=== PATIENT | female | born 1975 | race Hispanic/Latino ===

== ENCOUNTER 2018-07-04 09:15 | Emergency (ER) | payer MEDICARE ==
[2018-07-04 09:52] VITALS: BP 116/85
[2018-07-04] MEDS ORDERED: DELTASONE PO ONE (11:26)
[2018-07-04] MEDS ORDERED: TORADOL IM ONE (11:26)
--- NOTE | 2018-07-04 11:31 | Emergency Department Report ---
ED Neck Pain/Injury HPI - General Chief Complaint: Neck Pain/Injury Stated Complaint: NECK SPASMS/PAIN Time Seen by Provider: 07/04/18 11:25 Mode of arrival: Ambulatory Limitations: No Limitations - History of Present Illness Initial Comments: This is a 43-year-old female nontoxic, well nourished in appearance, no acute signs of distress presents to the ED with c/o of acute on chronic neck/upper back pain. Patient stated that she wake up with neck pain. Patient states has history of sciatica nerve pain. Patient states that pain radiates through to his left upper extremity. Patient denies any trauma. Denies any bladder or bowel instability. Patient denies any urinary symptoms. Denies any fever, chills, nausea, vomiting, headache, stiff neck, chest pain or shortness of breath. Patient denies any numbness or tingling. They stated allergies to Ceftin, Reglan and penicillin. Past medical history includes sciatica, neck and spine issues. Patient stated that she took Flexeril prior to coming to the ED. Patient stated that she takes Flexeril daily due to chronic back/neck spasms. MD Complaint: neck pain, upper back pain -: This morning Place: home Radiation: right upper extremity Severity: mild Severity scale (0 -10): 8 Quality: aching Consistency: constant Improves With: immobilization Worsens With: movement of neck Associated Symptoms: none. denies: headache, fever, numbness, tingling, weakness, vertigo, difficulty walking, swollen glands, difficulty swallowing, nausea, vomiting Treatments Prior to Arrival: none - Related Data Previous Rx's Medication Instructions Recorded Last Taken Type Acetaminophen/Codeine [Tylenol 1 tab PO Q6H PRN #12 tab 07/04/18 Unknown Rx /Codeine # 3 tab] Ibuprofen [Motrin] 600 mg PO Q8H PRN #30 tablet 07/04/18 Unknown Rx Allergies Allergy/AdvReac Type Severity Reaction Status Date / Time cefuroxime [From Ceftin] Allergy Unknown Verified 07/04/18 09:49 metoclopramide [From Reglan] Allergy Unknown Verified 07/04/18 09:49 Penicillins Allergy Shortness Verified 07/04/18 09:49 of Breath ED Review of Systems ROS: Stated complaint: NECK SPASMS/PAIN Other details as noted in HPI Constitutional: denies: chills, fever Eyes: denies: eye pain, eye discharge, vision change ENT: denies: ear pain, throat pain Respiratory: denies: cough, shortness of breath, wheezing Cardiovascular: denies: chest pain, palpitations Endocrine: no symptoms reported Gastrointestinal: denies: abdominal pain, nausea, diarrhea Genitourinary: denies: urgency, dysuria, discharge Musculoskeletal: back pain. denies: joint swelling, arthralgia Skin: denies: rash, lesions Neurological: denies: headache, weakness, paresthesias Psychiatric: denies: anxiety, depression Hematological/Lymphatic: denies: easy bleeding, easy bruising ED Past Medical Hx - Past Medical History Additional medical history: back, neck and spine issues, RA, Bechets disease - Surgical History Hx Cholecystectomy: Yes - Social History Smoking Status: Current Every Day Smoker Substance Use Type: None - Medications Home Medications: Home Medications Medication Instructions Recorded Confirmed Last Taken Type Acetaminophen/Codeine [Tylenol 1 tab PO Q6H PRN #12 tab 07/04/18 Unknown Rx /Codeine # 3 tab] Ibuprofen [Motrin] 600 mg PO Q8H PRN #30 tablet 07/04/18 Unknown Rx ED Physical Exam - General Limitations: No Limitations General appearance: alert, in no apparent distress - Head Head exam: Present: atraumatic, normocephalic - Eye Eye exam: Present: normal appearance Pupils: Present: normal accommodation - ENT ENT exam: Present: normal exam, mucous membranes moist - Neck Neck exam: Present: normal inspection, full ROM. Absent: tenderness, meningismus, lymphadenopathy - Respiratory Respiratory exam: Present: normal lung sounds bilaterally. Absent: respiratory distress, wheezes, rales, rhonchi, stridor, chest wall tenderness, accessory muscle use, decreased breath sounds, prolonged expiratory - Cardiovascular Cardiovascular Exam: Present: regular rate, normal rhythm, normal heart sounds. Absent: irregular rhythm, systolic murmur, diastolic murmur, rubs, gallop - GI/Abdominal GI/Abdominal exam: Present: soft, normal bowel sounds - Rectal Rectal exam: Present: deferred - Extremities Exam Extremities exam: Present: normal inspection, full ROM, normal capillary refill. Absent: tenderness - Back Exam Back exam: Present: normal inspection, full ROM, paraspinal tenderness (right sided cervical paraspinal). Absent: tenderness, CVA tenderness (R), CVA tenderness (L), muscle spasm, vertebral tenderness, rash noted - Expanded Back Exam Expanded Back exam: Negative Straight Leg Raising: Left, Right - Neurological Exam Neurological exam: Present: alert, oriented X3, normal gait - Psychiatric Psychiatric exam: Present: normal affect, normal mood - Skin Skin exam: Present: warm, dry, intact, normal color. Absent: rash ED Course Vital Signs 07/04/18 09:49 Temperature 99.4 F Pulse Rate 119 H Respiratory 22 Rate Blood Pressure 116/85 O2 Sat by Pulse 99 Oximetry - Reevaluation(s) Reevaluation #1: 07/04/18 11:32 Patient is speaking in full sentences with no signs of distress noted. ED Medical Decision Making - Medical Decision Making This is a 43-year-old female that presents with cervical muscle strain. Patient is stable was examined by me. There is no spinal tenderness. There is no cauda equina syndrome during examination. No bladder or bowel instability. Patient received Toradol 60 mg IM and Prednisone in the ED which patient stated that her symptoms has resolved and subsided. Patient is discharged with Motrin and Tylenol with codeine. Patient was instructed not to operate any machinery while taking Tylenol with codeine as they cause her drowsiness. Patient stated has Flexeril at home. Patient was referred to Follow-up with a primary care doctor in 3-5 days or if symptoms worsen and continue return to emergency room as soon as possible. At time of discharge, the patient does not seem toxic or ill in appearance. No acute signs of distress noted. Patient agrees to discharge treatment plan of care. No further questions noted by the patient. This chart is dictated with using [facility] [facility] [employer] Critical care attestation.: If time is entered above; I have spent that time in minutes in the direct care of this critically ill patient, excluding procedure time. ED Disposition Clinical Impression: Cervical muscle strain Qualifiers: Encounter type: initial encounter Qualified Code(s): S16.1XXA - Strain of muscle, fascia and tendon at neck level, initial encounter Disposition: TO HOME OR SELFCARE Is pt being admited?: No Does the pt Need Aspirin: No Condition: Stable Instructions: Muscle Strain (ED), Cyclobenzaprine (By mouth), Ibuprofen (By mouth) Additional Instructions: Follow-up with your primary care doctor in 3-5 days or if symptoms worsen such as bladder or bowel stability, chest pain, short of breath, numbness or tingling sensation in extremities, headache, dizziness, visual changes, nausea vomiting, or abdominal pain, return back to emergency room as was possible. Do not operate any machinery while taking Tylenol with codeine as this may cause drowsiness. Do not mix Flexeril with Tylenol with codeine as this causes severe drowsiness and Central nervous system depressant. Prescriptions: Acetaminophen/Codeine [Tylenol /Codeine # 3 tab] 1 tab PO Q6H PRN #12 tab PRN Reason: Pain , Severe (7-10) Ibuprofen [Motrin] 600 mg PO Q8H PRN #30 tablet PRN Reason: Pain Referrals: PRIMARY CARE, [Primary Care Provider] - 3-5 Days DEMETRIUS TERRAZAS MD [Staff Physician] - 3-5 Days [facility] [Outside] - 3-5 Days [facility] [Outside] - 3-5 Days Forms: Work/School Release Form(ED)
== END 2018-07-04 12:25 | disposition home or self-care (01) ==
LOC: ED 09:15
DX: S16.1XXA Strain of muscle, fascia and tendon at neck level, initial encounter (principal); F17.200 Nicotine dependence, unspecified, uncomplicated; Z90.49 Acquired absence of other specified parts of digestive tract; Z88.1 Allergy status to other antibiotic agents; Z88.0 Allergy status to penicillin; X58.XXXA Exposure to other specified factors, initial encounter; Y93.89 Activity, other specified; Y99.8 Other external cause status; Y92.89 Other specified places as the place of occurrence of the external cause
CPT/HCPCS: 96372; 99282; J1885; J7512

== ENCOUNTER 2018-07-17 09:01 | Emergency (ER) | payer MEDICARE ==
[2018-07-17 09:31] VITALS: BP 118/74
[2018-07-17 10:08] LABS: Hematocrit 39.8 % (30.3-42.9); Hemoglobin 13.5 gm/dl (10.1-14.3); Mean Corpuscular HGB Conc 34 % (30-34); Mean Corpuscular Hemoglobin 33 pg (28-32); Mean Corpuscular Volume 96 fl (79-97); Platelet Count 230 K/mm3 (140-440); Red Blood Count 4.16 M/mm3 (3.65-5.03)
[2018-07-17 10:19] LABS: INR 0.85 (0.87-1.13)
[2018-07-17 10:20] LABS: Partial Thromboplastin Time 25.5 Sec. (24.2-36.6)
[2018-07-17 10:46] LABS: Alanine Aminotransferase 17 units/L (7-56); Albumin 4.4 g/dL (3.9-5); BUN/Creatinine Ratio 21; Blood Urea Nitrogen 19 mg/dL (7-17); Calcium 9.5 mg/dL (8.4-10.2); Hemolysis Index 7
[2018-07-17] MEDS ORDERED: DECADRON PO ONE (12:27)
[2018-07-17] MEDS ORDERED: DUONEB *Not for PRN Use IH ONE (12:27)
--- NOTE | 2018-07-17 12:29 | Emergency Department Report ---
ED General Adult HPI - General Chief complaint: Upper Respiratory Infection Stated complaint: HEADACHE/COUGHING Time Seen by Provider: 07/17/18 11:44 Source: patient Mode of arrival: Ambulatory Limitations: No Limitations - History of Present Illness Initial comments: Patient presents to the emergency department with a chief complaint of not feeling well. Patient states for the last 2 days she has felt like she has a sinus infection and complains of a cough along with body aches. Patient denies a fever. Patient also denies chest pain, shortness breath, or headache. There are no other associated symptoms. -: Sudden Radiation: non-radiation Severity scale (0 -10): 3 Quality: aching Consistency: constant Improves with: none Worsens with: none Associated Symptoms: denies other symptoms Treatments Prior to Arrival: none - Related Data Previous Rx's Medication Instructions Recorded Last Taken Type Acetaminophen/Codeine [Tylenol 1 tab PO Q6H PRN #12 tab 07/04/18 Unknown Rx /Codeine # 3 tab] Ibuprofen [Motrin] 600 mg PO Q8H PRN #30 tablet 07/04/18 Unknown Rx ALBUTEROL Inhaler(NF) [VENTOLIN 2 puff IH Q4HR PRN #1 inha 07/17/18 Unknown Rx Inhaler(NF)] Acetaminophen/Codeine [Tylenol 1 tab PO Q6H PRN #12 tab 07/17/18 Unknown Rx /Codeine # 3 tab] Azithromycin [Zithromax Z-LETICIA] 0 mg PO DAILY #1 tab 07/17/18 Unknown Rx Prednisone [predniSONE 10 mg 10 mg PO .TAPER #1 tab.ds.pk 07/17/18 Unknown Rx (6-Day Pack, 21 Tabs)] Allergies Allergy/AdvReac Type Severity Reaction Status Date / Time cefuroxime [From Ceftin] Allergy Unknown Verified 07/04/18 09:49 metoclopramide [From Reglan] Allergy Unknown Verified 07/04/18 09:49 Penicillins Allergy Shortness Verified 07/04/18 09:49 of Breath ED Review of Systems ROS: Stated complaint: HEADACHE/COUGHING Other details as noted in HPI Comment: All other systems reviewed and negative Constitutional: denies: chills, fever Eyes: denies: eye pain, eye discharge, vision change ENT: denies: ear pain, throat pain Respiratory: denies: cough, shortness of breath, wheezing Cardiovascular: denies: chest pain, palpitations Endocrine: no symptoms reported Gastrointestinal: denies: abdominal pain, nausea, diarrhea Genitourinary: denies: urgency, dysuria, discharge Musculoskeletal: denies: back pain, joint swelling, arthralgia Skin: denies: rash, lesions Neurological: denies: headache, weakness, paresthesias Psychiatric: denies: anxiety, depression Hematological/Lymphatic: denies: easy bleeding, easy bruising ED Past Medical Hx - Past Medical History Previous Medical History?: Yes Additional medical history: back, neck and spine issues, RA, Bechets disease - Surgical History Past Surgical History?: Yes Hx Cholecystectomy: Yes - Social History Smoking Status: Current Every Day Smoker Substance Use Type: None - Medications Home Medications: Home Medications Medication Instructions Recorded Confirmed Last Taken Type Acetaminophen/Codeine [Tylenol 1 tab PO Q6H PRN #12 tab 07/04/18 Unknown Rx /Codeine # 3 tab] Ibuprofen [Motrin] 600 mg PO Q8H PRN #30 tablet 07/04/18 Unknown Rx ALBUTEROL Inhaler(NF) [VENTOLIN 2 puff IH Q4HR PRN #1 inha 07/17/18 Unknown Rx Inhaler(NF)] Acetaminophen/Codeine [Tylenol 1 tab PO Q6H PRN #12 tab 07/17/18 Unknown Rx /Codeine # 3 tab] Azithromycin [Zithromax Z-LETICIA] 0 mg PO DAILY #1 tab 07/17/18 Unknown Rx Prednisone [predniSONE 10 mg 10 mg PO .TAPER #1 tab.ds.pk 07/17/18 Unknown Rx (6-Day Pack, 21 Tabs)] ED Physical Exam - General Limitations: No Limitations General appearance: alert, in no apparent distress - Head Head exam: Present: atraumatic, normocephalic - Eye Eye exam: Present: normal appearance - ENT ENT exam: Present: mucous membranes moist - Neck Neck exam: Present: normal inspection - Respiratory Respiratory exam: Present: normal lung sounds bilaterally. Absent: respiratory distress, wheezes, rales, rhonchi - Cardiovascular Cardiovascular Exam: Present: regular rate, normal rhythm. Absent: systolic murmur, diastolic murmur, rubs, gallop - GI/Abdominal GI/Abdominal exam: Present: soft, normal bowel sounds. Absent: distended, tenderness - Extremities Exam Extremities exam: Present: normal inspection - Back Exam Back exam: Present: normal inspection - Neurological Exam Neurological exam: Present: alert, oriented X3, CN II-XII intact. Absent: motor sensory deficit - Psychiatric Psychiatric exam: Present: normal affect, normal mood - Skin Skin exam: Present: warm, dry, intact, normal color. Absent: rash ED Course Vital Signs 07/17/18 07/17/18 07/17/18 09:26 11:40 12:56 Temperature 98.6 F Pulse Rate 109 H Pulse Rate [ 94 H Posterior Bilateral Throughout] Respiratory 20 17 Rate Respiratory 20 Rate [Posterior Bilateral Throughout] Blood Pressure 118/74 O2 Sat by Pulse 97 Oximetry 07/17/18 13:09 Temperature Pulse Rate Pulse Rate [ 93 H Posterior Bilateral Throughout] Respiratory Rate Respiratory 18 Rate [Posterior Bilateral Throughout] Blood Pressure O2 Sat by Pulse Oximetry ED Medical Decision Making - Lab Data Result diagrams: 07/17/18 09:51 07/17/18 09:51 - Medical Decision Making Discussed results and plan of care Critical care attestation.: If time is entered above; I have spent that time in minutes in the direct care of this critically ill patient, excluding procedure time. ED Disposition Clinical Impression: Bronchitis Disposition: [id number]-01 TO HOME OR SELFCARE Is pt being admited?: No Does the pt Need Aspirin: No Condition: Stable Instructions: Acute Bronchitis (ED) Additional Instructions: return if worse Prescriptions: Acetaminophen/Codeine [Tylenol /Codeine # 3 tab] 1 tab PO Q6H PRN #12 tab PRN Reason: pain ALBUTEROL Inhaler(NF) [VENTOLIN Inhaler(NF)] 2 puff IH Q4HR PRN #1 inha PRN Reason: Wheezing Azithromycin [Zithromax Z-LETICIA] 0 mg PO DAILY #1 tab Prednisone [predniSONE 10 mg (6-Day Pack, 21 Tabs)] 10 mg PO .TAPER #1 tab.ds.pk Time of Disposition: 13:28
--- NOTE | 2018-07-17 13:07 | XRay Report ---
ROUTINE CHEST, TWO VIEWS: HISTORY: Short of breath. The lungs are hyperinflated but clear. No pleural effusion or pneumothorax. Normal heart and mediastinal structures. There is subtle loss of height in the midthoracic spine the approximate level of T6. The age of this is indeterminate. Please correlate with the patient. IMPRESSION: No acute process. Hyperinflated lungs. Mild loss of height of approximately T6 level as described.
== END 2018-07-17 13:34 | disposition home or self-care (01) ==
LOC: ED 09:01
DX: J40 Bronchitis, not specified as acute or chronic (principal); F17.200 Nicotine dependence, unspecified, uncomplicated; Z90.49 Acquired absence of other specified parts of digestive tract; Z88.1 Allergy status to other antibiotic agents; Z88.0 Allergy status to penicillin; Z88.8 Allergy status to other drugs, medicaments and biological substances
CPT/HCPCS: 36415; 71046; 80053; 85027; 85610; 85730; 94640; 99284; J8540

== ENCOUNTER 2018-08-02 10:08 | Emergency (ER) | payer MEDICARE ==
[2018-08-02 10:27] VITALS: BP 101/72
[2018-08-02 11:05] LABS: Bacteria,Urine 1+ /HPF (Negative); Bilirubin,Urine NEG (Negative); Blood,Urine LG (Negative); Color,Urine Amber (Yellow); Mucus,Urine 3+ /HPF; Urobilinogen,Urine < 2.0 mg/dL (<2.0)
[2018-08-02 11:06] LABS: HCG Qualitative,Urine Negative (Negative)
[2018-08-02 11:07] LABS: Basophils # (Auto) 0.1 K/mm3 (0.0-0.1); Basophils % (Auto) 0.9 % (0.0-1.8); Eosinophils # (Auto) 0.1 K/mm3 (0.0-0.4); Eosinophils % (Auto) 1.4 % (0.0-4.3); Hematocrit 39.5 % (30.3-42.9); Hemoglobin 13.8 gm/dl (10.1-14.3); Lymphocytes # (Auto) 1.5 K/mm3 (1.2-5.4); Mean Corpuscular HGB Conc 35 % (30-34); Mean Corpuscular Hemoglobin 32 pg (28-32); Mean Corpuscular Volume 92 fl (79-97); Monocytes # (Auto) 0.4 K/mm3 (0.0-0.8); Monocytes % (Auto) 5.6 % (0.0-7.3); Platelet Count 302 K/mm3 (140-440); Red Blood Count 4.28 M/mm3 (3.65-5.03); Red Cell Distribution Width 12.8 % (13.2-15.2)
[2018-08-02 11:27] LABS: BUN/Creatinine Ratio 25; Blood Urea Nitrogen 20 mg/dL (7-17); Calcium 9.3 mg/dL (8.4-10.2); Hemolysis Index 4
[2018-08-02] MEDS ORDERED: TORADOL IV ONE (11:30)
[2018-08-02] MEDS ORDERED: NACL 0.9% 1000 ML 1,000 ML IV ONE (11:30)
[2018-08-02] MEDS ORDERED: ZOFRAN IV ONE (11:30)
--- NOTE | 2018-08-02 11:31 | Emergency Department Report ---
ED Abdominal Pain HPI - General Chief Complaint: Abdominal Pain Stated Complaint: LOWER ABD PAIN/VAG BLEEDING Time Seen by Provider: 08/02/18 10:54 Source: patient Mode of arrival: Ambulatory Limitations: No Limitations - History of Present Illness Initial Comments: This is a 43-year-old female nontoxic, well nourished in appearance, no acute signs of distress presents to the ED with c/o of nausea and vomiting and bilateral lower pain 1 day. Patient stated abdominal pain radiates to right flank area. Patient describes abdominal pain as cramping and aching with level of 8/10. Patient also stated has hematuria and dysuria. Patient denies chest pain, short of breath, fever, chills, headache, stiff neck, numbness or tingling. Patient denies any diarrhea or constipation. Patient denies any other urinary symptoms. Patient denies any recent travels. Patient stated allergies to Ceftin, PCN, and reglan. MD Complaint: abdominal pain, flank pain -: days(s) (1) Location: LLQ, RLQ Radiation: R flank Migration to: no migration Severity: moderate Severity scale (0 -10): 8 Quality: aching Consistency: constant Improves With: nothing Worsens With: nothing Associated Symptoms: nausea, vomiting, dysuria, hematuria. denies: diarrhea, fever, chills, constipation, hematemesis, hematochezia, melena, anorexia, syncope - Related Data Previous Rx's Medication Instructions Recorded Last Taken Type Acetaminophen/Codeine [Tylenol 1 tab PO Q6H PRN #12 tab 07/04/18 Unknown Rx /Codeine # 3 tab] Ibuprofen [Motrin] 600 mg PO Q8H PRN #30 tablet 07/04/18 Unknown Rx ALBUTEROL Inhaler(NF) [VENTOLIN 2 puff IH Q4HR PRN #1 inha 07/17/18 Unknown Rx Inhaler(NF)] Acetaminophen/Codeine [Tylenol 1 tab PO Q6H PRN #12 tab 07/17/18 Unknown Rx /Codeine # 3 tab] Azithromycin [Zithromax Z-LETICIA] 0 mg PO DAILY #1 tab 07/17/18 Unknown Rx Prednisone [predniSONE 10 mg 10 mg PO .TAPER #1 tab.ds.pk 07/17/18 Unknown Rx (6-Day Pack, 21 Tabs)] Docusate Sodium [Colace] 100 mg PO BID PRN #20 capsule 08/02/18 Unknown Rx Sulfamethoxazole/Trimethoprim 1 each PO BID #14 tablet 08/02/18 Unknown Rx [Bactrim DS TAB] Allergies Allergy/AdvReac Type Severity Reaction Status Date / Time cefuroxime [From Ceftin] Allergy Unknown Verified 07/04/18 09:49 metoclopramide [From Reglan] Allergy Unknown Verified 07/04/18 09:49 Penicillins Allergy Shortness Verified 07/04/18 09:49 of Breath ED Review of Systems ROS: Stated complaint: LOWER ABD PAIN/VAG BLEEDING Other details as noted in HPI Constitutional: denies: chills, fever Eyes: denies: eye pain, eye discharge, vision change ENT: denies: ear pain, throat pain Respiratory: denies: cough, shortness of breath, wheezing Cardiovascular: denies: chest pain, palpitations Endocrine: no symptoms reported Gastrointestinal: abdominal pain, nausea, vomiting. denies: diarrhea Genitourinary: dysuria, hematuria. denies: urgency, frequency, discharge Musculoskeletal: denies: back pain, joint swelling, arthralgia Skin: denies: rash, lesions Neurological: denies: headache, weakness, paresthesias Psychiatric: denies: anxiety, depression Hematological/Lymphatic: denies: easy bleeding, easy bruising ED Past Medical Hx - Past Medical History Previous Medical History?: Yes Additional medical history: back, neck and spine issues, RA, Bechets disease - Surgical History Past Surgical History?: Yes Hx Cholecystectomy: Yes Additional Surgical History: abdominal plasty - Social History Smoking Status: Current Every Day Smoker Substance Use Type: None - Medications Home Medications: Home Medications Medication Instructions Recorded Confirmed Last Taken Type Acetaminophen/Codeine [Tylenol 1 tab PO Q6H PRN #12 tab 07/04/18 Unknown Rx /Codeine # 3 tab] Ibuprofen [Motrin] 600 mg PO Q8H PRN #30 tablet 07/04/18 Unknown Rx ALBUTEROL Inhaler(NF) [VENTOLIN 2 puff IH Q4HR PRN #1 inha 07/17/18 Unknown Rx Inhaler(NF)] Acetaminophen/Codeine [Tylenol 1 tab PO Q6H PRN #12 tab 07/17/18 Unknown Rx /Codeine # 3 tab] Azithromycin [Zithromax Z-LETICIA] 0 mg PO DAILY #1 tab 07/17/18 Unknown Rx Prednisone [predniSONE 10 mg 10 mg PO .TAPER #1 tab.ds.pk 07/17/18 Unknown Rx (6-Day Pack, 21 Tabs)] Docusate Sodium [Colace] 100 mg PO BID PRN #20 capsule 08/02/18 Unknown Rx Sulfamethoxazole/Trimethoprim 1 each PO BID #14 tablet 08/02/18 Unknown Rx [Bactrim DS TAB] ED Physical Exam - General Limitations: No Limitations General appearance: alert, in no apparent distress - Head Head exam: Present: atraumatic, normocephalic - Eye Eye exam: Present: normal appearance - ENT ENT exam: Present: normal exam, mucous membranes moist - Neck Neck exam: Present: normal inspection, full ROM. Absent: tenderness, meningismus - Respiratory Respiratory exam: Present: normal lung sounds bilaterally. Absent: respiratory distress, wheezes, rales, rhonchi, stridor, chest wall tenderness, accessory muscle use, decreased breath sounds, prolonged expiratory - Cardiovascular Cardiovascular Exam: Present: regular rate, normal rhythm, normal heart sounds. Absent: irregular rhythm, systolic murmur, diastolic murmur, rubs, gallop - GI/Abdominal GI/Abdominal exam: Present: soft, tenderness (RLQ/LLQ), normal bowel sounds. Absent: distended, guarding, rebound, rigid, diminished bowel sounds, hyperactive bowel sounds, hypoactive bowel sounds, mass, bruit, pulsatile mass - Expanded GI/Abdominal Exam Expanded GI/Abdominal exam: Absent: psoas sign, Oseguera's sign, Rovsing's sign, tenderness at Mcburney's Point - Rectal Rectal exam: Present: deferred - Extremities Exam Extremities exam: Present: normal inspection, full ROM, normal capillary refill. Absent: tenderness - Back Exam Back exam: Present: normal inspection, full ROM. Absent: tenderness, CVA tenderness (R), CVA tenderness (L), muscle spasm, paraspinal tenderness, vertebral tenderness, rash noted - Neurological Exam Neurological exam: Present: alert, oriented X3, normal gait - Psychiatric Psychiatric exam: Present: normal affect, normal mood - Skin Skin exam: Present: warm, dry, intact, normal color. Absent: rash ED Course Vital Signs 08/02/18 08/02/18 08/02/18 10:21 10:45 11:41 Temperature 98.6 F Pulse Rate 103 H Respiratory 16 16 18 Rate Blood Pressure 101/72 O2 Sat by Pulse 99 Oximetry 08/02/18 12:11 Temperature Pulse Rate Respiratory 18 Rate Blood Pressure O2 Sat by Pulse Oximetry - Reevaluation(s) Reevaluation #1: 08/02/18 11:42 Patient is speaking in full sentences with no signs of distress noted. ED Medical Decision Making - Lab Data Result diagrams: 08/02/18 11:00 08/02/18 11:00 - Medical Decision Making This is a 43-year-old female that presents with UTI and constipation. Patient is stable and was examined by me. There is slight abdominal tenderness. Negative signs of symptoms of appendicitis. Labs obtained. UA obtained. Ct with contrast of abdomen obtained and dictated by the radiologist. Patient is notified of the report with no questions noted by the patient. Vital signs are stable prior to discharge. PAtient received treatment in the ED which patient stated symptoms has resolved and subsided. A by mouth challenge has been obtained and patient tolerated well with no nausea vomiting. Patient was notified of strict precautions of appendicitis symptoms and to return to the ED if symptoms occurs as soon as possible. Patient was also instructed to Follow- up with a primary care doctor in 3-5 days or if symptoms worsen and continue return to emergency room as soon as possible. At time of discharge, the patient does not seem toxic or ill in appearance. No acute signs of distress noted. Patient agrees to discharge treatment plan of care. No further questions noted by the patient. Critical care attestation.: If time is entered above; I have spent that time in minutes in the direct care of this critically ill patient, excluding procedure time. ED Disposition Clinical Impression: UTI (urinary tract infection) Qualifiers: Urinary tract infection type: site unspecified Hematuria presence: with hematuria Qualified Code(s): N39.0 - Urinary tract infection, site not specified ; R31.9 - Hematuria, unspecified Constipation Qualifiers: Constipation type: unspecified constipation type Qualified Code(s): K59.00 - Constipation, unspecified Disposition: - TO HOME OR SELFCARE Is pt being admited?: No Does the pt Need Aspirin: No Condition: Stable Instructions: Abdominal Pain (ED), High Fiber Diet (ED), Constipation (ED), Urinary Tract Infection in Women (ED) Additional Instructions: Follow-up with a primary care doctor in 3-5 days or if symptoms worsen and continue return to emergency room as soon as possible. Prescriptions: Docusate Sodium [Colace] 100 mg PO BID PRN #20 capsule PRN Reason: Constipation Sulfamethoxazole/Trimethoprim [Bactrim DS TAB] 1 each PO BID #14 tablet Referrals: PRIMARY CAREMD [Primary Care Provider] - 3-5 Days DEMETRIUS TERRAZAS MD [Staff Physician] - 3-5 Days [facility] [Outside] - 3-5 Days Forms: Work/School Release Form(ED)
--- NOTE | 2018-08-02 13:28 | Cat Scan Report ---
CT ABDOMEN PELVIS WITH CONTRAST: HISTORY: abdominal pain. COMPARISON: none. TECHNIQUE: Helical CT in 1.25mm intervals following IV contrast. Sagittal and coronal reconstructions. FINDINGS: Lung bases: Normal. Liver: Normal. Biliary system: Cholecystectomy changes. No biliary dilatation. Pancreas: Normal. Spleen: Normal. Kidneys/ureters/bladder: Normal. Adrenal glands: Normal. Aorta: Normal. Intestines: Mild fecal retention. No evidence for obstruction or focal inflammation. Appendix: Normal. Pelvic viscera: Normal. Ascites: None. Adenopathy: None. Musculoskeletal: Normal. IMPRESSION: Mild fecal retention. Cholecystectomy. Otherwise unremarkable examination of the abdomen and pelvis.
== END 2018-08-02 15:16 | disposition home or self-care (01) ==
LOC: ED 10:08
DX: N39.0 Urinary tract infection, site not specified (principal); K59.00 Constipation, unspecified; F17.200 Nicotine dependence, unspecified, uncomplicated; Z79.899 Other long term (current) drug therapy; Z88.0 Allergy status to penicillin; Z88.1 Allergy status to other antibiotic agents
CPT/HCPCS: 36415; 74177; 80048; 81001; 81025; 85025; 87086; 96361; 96374; 96375; 99284; J1885; J2405; J7030; Q9967

== ENCOUNTER 2020-09-01 19:08 | Emergency (ER) | payer MEDICARE ==
[2020-09-01 19:43] VITALS: BP 114/74
--- NOTE | 2020-09-01 20:03 | Emergency Department Report ---
Blank Doc - Documentation Documentation: 45-year-old female that presents with vaginal discharge and pelvic pain. This initial assessment/diagnostic orders/clinical plan/treatment(s) is/are subject to change based on patient's health status, clinical progression and re- assessment by fellow clinical providers in the ED. Further treatment and workup at subsequent clinical providers discretion. Patient/guardians urged not to elope from the ED as their condition may be serious if not clinically assessed and managed. Initial orders include: 1- Patient sent to [facility] for further evaluation and treatment 2- UA
[2020-09-01 23:08] LABS: Bilirubin,Urine NEG (Negative); Blood,Urine SM (Negative); Calcium Oxalate Crystals,Urine 3+; Color,Urine Yellow (Yellow); Mucus,Urine 1+ /HPF; Protein,Urine <15 mg/dL mg/dL (Negative); Urobilinogen,Urine < 2.0 mg/dL (<2.0)
[2020-09-01 23:11] LABS: HCG Qualitative,Urine Negative (Negative)
[2020-09-01] MEDS ORDERED: KETOROLAC 60 MG/2 ML INJ IM ONE (23:29)
--- NOTE | 2020-09-01 23:34 | Emergency Department Report ---
<MUSTAPHA GUARDADO - Last Filed: 09/01/20 23:30> ED Abdominal Pain HPI - General Chief Complaint: Urogenital-Female Stated Complaint: CHEST PAIN, PELVIC/ABDOMINAL PAIN, AND NAUSEA Time Seen by Provider: 09/01/20 20:02 Source: patient Mode of arrival: Ambulatory Limitations: No Limitations - History of Present Illness Initial Comments: Patient is 45 years old female with history of lupus, arthritis and chronic back pain. Patient also stated that she had history of kidney stone before. Patient presented to the ER complaining of bilateral flank pain and suprapubic abdominal pain since this morning. Patient described the pain as sharp with no radiation. Patient also reported history of dysuria but no hematuria. No vaginal bleeding or vaginal discharge. Patient also denied any fever or chills. MD Complaint: abdominal pain, flank pain -: This morning Location: diffuse, L flank, R flank Radiation: none Migration to: no migration Severity: moderate Severity scale (0 -10): 5 Consistency: constant - Related Data Home Medications Medication Instructions Recorded Confirmed Last Taken Colchicine 0.6 mg PO DAILY 08/23/18 08/23/18 Unknown Hydroxychloroquine [Plaquenil] 200 mg PO QDAY 08/23/18 08/23/18 Unknown Omeprazole Magnesium [Prilosec] 10 mg PO DAILY 08/23/18 08/23/18 Unknown Pantoprazole [Protonix TAB] 20 mg QDAY 08/23/18 08/23/18 Unknown QUEtiapine [SEROquel] 300 mg PO QHS 08/23/18 08/23/18 Unknown SUMAtriptan SUCCINATE [Imitrex] 100 mg PO PRN PRN 08/23/18 08/23/18 Unknown Sertraline [Zoloft] 150 mg PO QDAY 08/23/18 08/23/18 Unknown busPIRone [Buspar] 15 mg PO TID 08/23/18 08/23/18 Unknown hydroCHLOROthiazide [HCTZ] 12.5 mg PO BID 08/23/18 08/23/18 Unknown Previous Rx's Medication Instructions Recorded Last Taken Type Docusate Sodium [Colace] 100 mg PO BID PRN #20 capsule 08/02/18 Unknown Rx Cyclobenzaprine [Flexeril 10 MG 10 mg PO QHS #20 tablet 08/23/18 Unknown Rx TAB] Meloxicam 15 mg PO DAILY #20 tablet 08/23/18 Unknown Rx Sulfamethoxazole/Trimethoprim 1 each PO BID #10 tablet 08/23/18 Unknown Rx [Bactrim DS TAB] Ketorolac [Toradol] 10 mg PO Q6H PRN #20 tablet 09/05/18 Unknown Rx Ibuprofen [Motrin 600 MG tab] 600 mg PO Q8H PRN #30 tablet 04/21/20 Unknown Rx traMADoL [Ultram 50 MG tab] 50 mg PO Q6HR PRN #12 tablet 04/21/20 Unknown Rx DOXYCYCLINE Hyclate [Vibramycin 100 mg PO Q12HR #28 capsule 09/02/20 Unknown Rx CAP] Ketorolac [Toradol] 10 mg PO Q8H PRN #20 tablet 09/02/20 Unknown Rx Ondansetron [Zofran Odt] 4 mg PO Q6HR PRN #15 tab.rapdis 09/02/20 Unknown Rx metroNIDAZOLE [Flagyl] 500 mg PO Q12HR #14 tab 09/02/20 Unknown Rx traMADoL [Ultram] 50 mg PO Q6HR PRN #12 tablet 09/02/20 Unknown Rx Allergies Allergy/AdvReac Type Severity Reaction Status Date / Time cefuroxime [From Ceftin] Allergy Unknown Verified 07/04/18 09:49 cephalexin [From Keflex] Allergy Unknown Verified 09/01/20 19:31 metoclopramide [From Reglan] Allergy Unknown Verified 07/04/18 09:49 Penicillins Allergy Shortness Verified 07/04/18 09:49 of Breath ED Review of Systems Comment: All other systems reviewed and negative Constitutional: denies: chills, fever Respiratory: denies: cough, shortness of breath, SOB with exertion Cardiovascular: denies: chest pain, palpitations Gastrointestinal: abdominal pain. denies: nausea, vomiting, diarrhea, constipation, hematemesis, melena Musculoskeletal: back pain Neurological: denies: headache, weakness, numbness ED Past Medical Hx - Past Medical History Previous Medical History?: Yes Hx CVA: Yes (no residual) Hx Arthritis: Yes (RA) Hx Headaches / Migraines: Yes Hx Psychiatric Treatment: Yes (ANXIETY) Additional medical history: back, neck and spine issues, RA, Bechets disease,leaky valve,Blood Clot in heart-resolved, Lupus, Current Fibroids, Current Ovarian cyst - Surgical History Past Surgical History?: Yes Hx Cholecystectomy: Yes Additional Surgical History: abdominal plasty, BOWEL OBSTRUCTION - Social History Smoking Status: Current Some Day Smoker - Medications Home Medications: Home Medications Medication Instructions Recorded Confirmed Last Taken Type Docusate Sodium [Colace] 100 mg PO BID PRN #20 capsule 08/02/18 08/23/18 Unknown Rx Colchicine 0.6 mg PO DAILY 08/23/18 08/23/18 Unknown History Cyclobenzaprine [Flexeril 10 MG 10 mg PO QHS #20 tablet 08/23/18 Unknown Rx TAB] Hydroxychloroquine [Plaquenil] 200 mg PO QDAY 08/23/18 08/23/18 Unknown History Meloxicam 15 mg PO DAILY #20 tablet 08/23/18 Unknown Rx Omeprazole Magnesium [Prilosec] 10 mg PO DAILY 08/23/18 08/23/18 Unknown History Pantoprazole [Protonix TAB] 20 mg QDAY 08/23/18 08/23/18 Unknown History QUEtiapine [SEROquel] 300 mg PO QHS 08/23/18 08/23/18 Unknown History SUMAtriptan SUCCINATE [Imitrex] 100 mg PO PRN PRN 08/23/18 08/23/18 Unknown History Sertraline [Zoloft] 150 mg PO QDAY 08/23/18 08/23/18 Unknown History Sulfamethoxazole/Trimethoprim 1 each PO BID #10 tablet 08/23/18 Unknown Rx [Bactrim DS TAB] busPIRone [Buspar] 15 mg PO TID 08/23/18 08/23/18 Unknown History hydroCHLOROthiazide [HCTZ] 12.5 mg PO BID 08/23/18 08/23/18 Unknown History Ketorolac [Toradol] 10 mg PO Q6H PRN #20 tablet 09/05/18 Unknown Rx Ibuprofen [Motrin 600 MG tab] 600 mg PO Q8H PRN #30 tablet 04/21/20 Unknown Rx traMADoL [Ultram 50 MG tab] 50 mg PO Q6HR PRN #12 tablet 04/21/20 Unknown Rx DOXYCYCLINE Hyclate [Vibramycin 100 mg PO Q12HR #28 capsule 09/02/20 Unknown Rx CAP] Ketorolac [Toradol] 10 mg PO Q8H PRN #20 tablet 09/02/20 Unknown Rx Ondansetron [Zofran Odt] 4 mg PO Q6HR PRN #15 tab.rapdis 09/02/20 Unknown Rx metroNIDAZOLE [Flagyl] 500 mg PO Q12HR #14 tab 09/02/20 Unknown Rx traMADoL [Ultram] 50 mg PO Q6HR PRN #12 tablet 09/02/20 Unknown Rx ED Physical Exam - General Limitations: No Limitations General appearance: alert, in no apparent distress - Head Head exam: Present: atraumatic, normocephalic, normal inspection - Eye Eye exam: Present: normal appearance, PERRL - ENT ENT exam: Present: normal exam, normal orophraynx, mucous membranes moist - Neck Neck exam: Present: normal inspection. Absent: tenderness, meningismus - Respiratory Respiratory exam: Present: normal lung sounds bilaterally. Absent: respiratory distress, chest wall tenderness - Cardiovascular Cardiovascular Exam: Present: regular rate, normal rhythm, normal heart sounds - GI/Abdominal GI/Abdominal exam: Present: soft, normal bowel sounds. Absent: distended, tenderness, guarding, rebound, rigid, organomegaly, mass, bruit, pulsatile mass, hernia - Extremities Exam Extremities exam: Present: normal inspection, full ROM, normal capillary refill. Absent: tenderness, pedal edema, calf tenderness - Back Exam Back exam: Present: normal inspection, full ROM. Absent: CVA tenderness (R), CVA tenderness (L) - Neurological Exam Neurological exam: Present: alert, oriented X3, CN II-XII intact, normal gait, reflexes normal. Absent: motor sensory deficit - Psychiatric Psychiatric exam: Present: normal mood - Skin Skin exam: Present: warm, intact, normal color ED Disposition Clinical Impression: Bilateral flank pain, Dysuria, Suprapubic abdominal pain, Bacterial vaginosis Disposition: DC- TO HOME OR SELFCARE Condition: Stable Instructions: Flank Pain (ED), Bacterial Vaginosis (ED), Abdominal Pain (ED) Additional Instructions: Take medications with food, drink plenty of fluids and follow-up with your primary care physician in 5 to 7 days for reevaluation. Return to the ED immediately if symptoms get worse. Prescriptions: metroNIDAZOLE [Flagyl] 500 mg PO Q12HR #14 tab Ketorolac [Toradol] 10 mg PO Q8H PRN #20 tablet PRN Reason: Pain traMADoL [Ultram] 50 mg PO Q6HR PRN #12 tablet PRN Reason: Pain DOXYCYCLINE Hyclate [Vibramycin CAP] 100 mg PO Q12HR #28 capsule Ondansetron [Zofran Odt] 4 mg PO Q6HR PRN #15 tab.rapdis PRN Reason: Nausea Referrals: [facility] [Provider Group] - 3-5 Days Forms: STI Treatment and Prevention Print Language: ZIMBABWEAN <MATTY FELDMAN - Last Filed: 09/02/20 02:15> ED Review of Systems ROS: Stated complaint: CHEST PAIN, PELVIC/ABDOMINAL PAIN, AND NAUSEA Other details as noted in HPI ED Course Vital Signs 09/01/20 19:41 Temperature 98.0 F Pulse Rate 76 Respiratory 18 Rate Blood Pressure 114/74 O2 Sat by Pulse 98 Oximetry ED Medical Decision Making - Lab Data Result diagrams: 09/01/20 23:50 09/01/20 23:50 - Radiology Data Radiology results: report reviewed, [place] [address] Cat Scan Report Signed Patient: PAT ARENAS MR#: [id number] : 1975 Acct:[id number] Age/Sex: 45 / F ADM Date: 09/01/20 Loc: ED Attending Dr: Ordering Physician: MUSTAPHA GUARDADO Date of Service: 09/01/20 Procedure(s): CT abdomen pelvis wo con Accession Number(s): [id number] cc: MUSTAPHA GUARDADO CT ABDOMEN AND PELVIS WITHOUT CONTRAST INDICATION / CLINICAL INFORMATION: Patient complains of pelvic pain with vaginal discharge.. TECHNIQUE: Axial CT images were obtained through the abdomen and pelvis without IV contrast. All CT scans at this location are performed using CT dose reduction for ALARA by means of automated exposure control. COMPARISON: 08/02/2018. FINDINGS: LOWER CHEST: No significant abnormality. LIVER: No significant abnormality. GALLBLADDER: Removed. BILE DUCTS: No significant abnormality. PANCREAS: No significant abnormality. SPLEEN: No significant abnormality. ADRENALS: No significant abnormality. RIGHT KIDNEY and URETER: No significant abnormality. LEFT KIDNEY and URETER: No significant abnormality. STOMACH and SMALL BOWEL: No significant abnormality. COLON: No significant abnormality. APPENDIX: Not well identified and cannot be adequately assessed on this exam.. PERITONEUM: No free fluid. No free air. No fluid collection. LYMPH NODES: No significant adenopathy. AORTA and ARTERIES: No significant abnormality. IVC and VEINS: No significant abnormality. URINARY BLADDER: No significant abnormality. REPRODUCTIVE ORGANS: No significant abnormality. ADDITIONAL FINDINGS: None. SKELETAL SYSTEM: No significant abnormality. IMPRESSION: No acute findings identified within the limits of the noncontrast technique. Signer Name: Mateo Boswell MD Signed: 09/02/2020 12:25 AM Workstation Name: [id number] Transcribed By: Dictated By: Mateo Boswell MD Electronically Authenticated By: Mateo Boswell MD Signed Date/Time: 09/02/2024 DD/ TD/TT: - Medical Decision Making I assumed care of the patient from Dr. Guardado at shift change. Patient had presented to the ED with abdominal pain, dysuria, bilateral flank pain. In the ED, patient was treated for pain, lab test results were reviewed and are all nonactionable. Abdomen pelvis CT scan without contrast showed no acute abnormalities or evidence of kidney stones. On reevaluation, patient pain is well controlled medications. Patient will discharge home per Dr. Guardado's recommendation. Patient was advised to follow-up with her primary care physician in 5 to 7 days for reevaluation or return to the ED immediately if symptoms get worse. - Differential Diagnosis Kidney stones; PID; UTI; ovarian cyst; colitis; diverticulitis Critical care attestation.: If time is entered above; I have spent that time in minutes in the direct care of this critically ill patient, excluding procedure time. ED Disposition Is pt being admited?: No Does the pt Need Aspirin: No Time of Disposition: 02:08
--- NOTE | 2020-09-02 00:30 | Cat Scan Report ---
CT ABDOMEN AND PELVIS WITHOUT CONTRAST INDICATION / CLINICAL INFORMATION: Patient complains of pelvic pain with vaginal discharge.. TECHNIQUE: Axial CT images were obtained through the abdomen and pelvis without IV contrast. All CT scans at [facility] location are performed using CT dose reduction for ALARA by means of automated exposure control. COMPARISON: 08/02/2018. FINDINGS: LOWER CHEST: No significant abnormality. LIVER: No significant abnormality. GALLBLADDER: Removed. BILE DUCTS: No significant abnormality. PANCREAS: No significant abnormality. SPLEEN: No significant abnormality. ADRENALS: No significant abnormality. RIGHT KIDNEY and URETER: No significant abnormality. LEFT KIDNEY and URETER: No significant abnormality. STOMACH and SMALL BOWEL: No significant abnormality. COLON: No significant abnormality. APPENDIX: Not well identified and cannot be adequately assessed on this exam.. PERITONEUM: No free fluid. No free air. No fluid collection. LYMPH NODES: No significant adenopathy. AORTA and ARTERIES: No significant abnormality. IVC and VEINS: No significant abnormality. URINARY BLADDER: No significant abnormality. REPRODUCTIVE ORGANS: No significant abnormality. ADDITIONAL FINDINGS: None. SKELETAL SYSTEM: No significant abnormality. IMPRESSION: No acute findings identified within the limits of the noncontrast technique. Signer Name: Mateo Boswell MD Signed: 09/02/2020 12:25 AM Workstation Name: [id number]
[2020-09-02 00:32] LABS: Basophils % (Auto) 0.7 % (0.0-1.8); Eosinophils # (Auto) 0.3 K/mm3 (0.0-0.4); Eosinophils % (Auto) 4.8 % (0.0-4.3); Hematocrit 41.5 % (30.3-42.9); Lymphocytes # (Auto) 2.3 K/mm3 (1.2-5.4); Lymphocytes % (Auto) 41.7 % (13.4-35.0); Mean Corpuscular HGB Conc 34 % (30-34); Mean Corpuscular Volume 97 fl (79-97); Monocytes # (Auto) 0.4 K/mm3 (0.0-0.8); Monocytes % (Auto) 6.6 % (0.0-7.3); Platelet Count 244 K/mm3 (140-440); Red Blood Count 4.28 M/mm3 (3.65-5.03); Red Cell Distribution Width 13.9 % (13.2-15.2)
[2020-09-02 00:46] LABS: BUN/Creatinine Ratio 25; Blood Urea Nitrogen 20 mg/dL (7-17); Calcium 9.5 mg/dL (8.4-10.2); Hemolysis Index 4
== END 2020-09-02 02:50 | disposition home or self-care (01) ==
LOC: ED 19:08
DX: N76.0 Acute vaginitis (principal); B96.89 Other specified bacterial agents as the cause of diseases classified elsewhere; R30.0 Dysuria; R10.2 Pelvic and perineal pain; R10.84 Generalized abdominal pain; M19.91 Primary osteoarthritis, unspecified site; G43.909 Migraine, unspecified, not intractable, without status migrainosus; F41.9 Anxiety disorder, unspecified; F17.200 Nicotine dependence, unspecified, uncomplicated; Z86.73 Personal history of transient ischemic attack (TIA), and cerebral infarction without residual deficits; Z90.49 Acquired absence of other specified parts of digestive tract; Z98.890 Other specified postprocedural states; Z79.1 Long term (current) use of non-steroidal anti-inflammatories (NSAID); Z79.899 Other long term (current) drug therapy; Z88.0 Allergy status to penicillin; Z88.8 Allergy status to other drugs, medicaments and biological substances
CPT/HCPCS: 36415; 74176; 80048; 81001; 81025; 85025; 87210; 96372; 99284; J1885

== ENCOUNTER 2020-10-22 19:23 | Emergency (ER) | payer MEDICARE | END 2020-10-22 19:30 | disposition left against medical advice (07) | LOC: ED 19:23 | DX: S69.91XA Unspecified injury of right wrist, hand and finger(s), initial encounter (principal); Z53.21 Procedure and treatment not carried out due to patient leaving prior to being seen by health care provider; X58.XXXA Exposure to other specified factors, initial encounter; Y93.89 Activity, other specified; Y92.89 Other specified places as the place of occurrence of the external cause; Y99.8 Other external cause status ==

== ENCOUNTER 2022-03-26 02:54 | Emergency (ER) | payer MEDICARE ==
--- NOTE | 2022-03-26 04:20 | Emergency Department Report ---
ED Medical Clearance HPI - General Chief complaint: Psych Stated complaint: MEDICAL CLEARANCE FOR [facility] Source: patient Mode of arrival: Ambulatory - History of Present Illness Initial comments: Patient is a 47-year-old female with a history of migraine headaches, CVA, anxiety, depression, bipolar disorder, osteoarthritis, SLE and chronic pain who presents to the ED for medical clearance for admission at [facility]. Patient states that she would like to be evaluated at [place] for her mental health. Patient denies suicidal or homicidal ideations, hallucinations, nausea, vomiting, chest pain, shortness of breath, abdominal pain, cough, sore throat, diarrhea, dysuria, urinary frequency and urgency and headache. MD Complaint: medical clearance request, other (Medical clearance for [facility] admission) -: Gradual, week(s) (1) Reason for Medical Clearance: psychiatric condition Place: home Alledged Intoxication: No Compliant with Home Medications: No Traumatic Symptoms: denies traumatic injury Associated Symptoms: denies: chest pain, shortness of breath, palpitations, diaphoresis, denies other symptoms, confusion, cough, fever/chills, headaches, anorexia, malaise, nausea/vomiting, rash, seizure, syncope, weakness, other Treatments Prior to Arrival: none Home medications: Home Medications Medication Instructions Recorded Confirmed Last Taken Colchicine 0.6 mg PO DAILY 08/23/18 08/23/18 Unknown Hydroxychloroquine [Plaquenil] 200 mg PO QDAY 08/23/18 08/23/18 Unknown Omeprazole Magnesium [Prilosec] 10 mg PO DAILY 08/23/18 08/23/18 Unknown Pantoprazole [Protonix TAB] 20 mg QDAY 08/23/18 08/23/18 Unknown QUEtiapine [SEROquel] 300 mg PO QHS 08/23/18 08/23/18 Unknown SUMAtriptan SUCCINATE [Imitrex] 100 mg PO PRN PRN 08/23/18 08/23/18 Unknown Sertraline [Zoloft] 150 mg PO QDAY 08/23/18 08/23/18 Unknown busPIRone [Buspar] 15 mg PO TID 08/23/18 08/23/18 Unknown hydroCHLOROthiazide [HCTZ] 12.5 mg PO BID 08/23/18 08/23/18 Unknown Previous Rx's Medication Instructions Recorded Last Taken Type Docusate Sodium [Colace] 100 mg PO BID PRN #20 capsule 08/02/18 Unknown Rx Cyclobenzaprine [Flexeril 10 MG 10 mg PO QHS #20 tablet 08/23/18 Unknown Rx TAB] Meloxicam 15 mg PO DAILY #20 tablet 08/23/18 Unknown Rx Sulfamethoxazole/Trimethoprim 1 each PO BID #10 tablet 08/23/18 Unknown Rx [Bactrim DS TAB] Ketorolac [Toradol] 10 mg PO Q6H PRN #20 tablet 09/05/18 Unknown Rx Ibuprofen [Motrin 600 MG tab] 600 mg PO Q8H PRN #30 tablet 04/21/20 Unknown Rx traMADoL [Ultram 50 MG tab] 50 mg PO Q6HR PRN #12 tablet 04/21/20 Unknown Rx DOXYCYCLINE Hyclate [Vibramycin 100 mg PO Q12HR #28 capsule 09/02/20 Unknown Rx CAP] Ketorolac [Toradol] 10 mg PO Q8H PRN #20 tablet 09/02/20 Unknown Rx Ondansetron [Zofran Odt] 4 mg PO Q6HR PRN #15 tab.rapdis 09/02/20 Unknown Rx metroNIDAZOLE [Flagyl] 500 mg PO Q12HR #14 tab 09/02/20 Unknown Rx traMADoL [Ultram] 50 mg PO Q6HR PRN #12 tablet 09/02/20 Unknown Rx Potassium Chloride [Klor-Con M20] 20 meq PO Q12H #20 tab 03/26/22 Unknown Rx levoFLOXacin [Levaquin TAB] 500 mg PO QDAY #10 tablet 03/26/22 Unknown Rx Allergies/Adverse reactions: Allergies Allergy/AdvReac Type Severity Reaction Status Date / Time cefuroxime [From Ceftin] Allergy Unknown Verified 03/26/22 10:52 cephalexin [From Keflex] Allergy Unknown Verified 03/26/22 10:52 metoclopramide [From Reglan] Allergy Unknown Verified 03/26/22 10:52 Penicillins Allergy Shortness Verified 03/26/22 10:52 of Breath ED Review of Systems ROS: Stated complaint: MEDICAL CLEARANCE FOR [facility] Other details as noted in HPI Constitutional: denies: chills, fever Eyes: denies: eye pain, eye discharge, vision change ENT: denies: ear pain, throat pain, congestion Respiratory: denies: cough, shortness of breath, wheezing Cardiovascular: denies: chest pain, palpitations Endocrine: no symptoms reported Gastrointestinal: denies: abdominal pain, nausea, vomiting, diarrhea Genitourinary: denies: urgency, dysuria, discharge Musculoskeletal: denies: back pain, joint swelling, arthralgia Skin: denies: rash, lesions Neurological: denies: headache, weakness, paresthesias Psychiatric: anxiety, depression. denies: auditory hallucinations, visual hallucinations, homicidal thoughts, suicidal thoughts Hematological/Lymphatic: denies: easy bleeding, easy bruising ED Past Medical Hx - Past Medical History Hx CVA: Yes (no residual) Hx Arthritis: Yes (RA) Hx Headaches / Migraines: Yes Hx Psychiatric Treatment: Yes (ANXIETY) Additional medical history: back, neck and spine issues, RA, Bechets disease,leaky valve,Blood Clot in heart-resolved, Lupus, Current Fibroids, Current Ovarian cyst - Surgical History Hx Cholecystectomy: Yes Additional Surgical History: abdominal plasty, BOWEL OBSTRUCTION - Social History Smoking Status: Current Every Day Smoker - Medications Home Medications: Home Medications Medication Instructions Recorded Confirmed Last Taken Type Docusate Sodium [Colace] 100 mg PO BID PRN #20 capsule 08/02/18 08/23/18 Unknown Rx Colchicine 0.6 mg PO DAILY 08/23/18 08/23/18 Unknown History Cyclobenzaprine [Flexeril 10 MG 10 mg PO QHS #20 tablet 08/23/18 Unknown Rx TAB] Hydroxychloroquine [Plaquenil] 200 mg PO QDAY 08/23/18 08/23/18 Unknown History Meloxicam 15 mg PO DAILY #20 tablet 08/23/18 Unknown Rx Omeprazole Magnesium [Prilosec] 10 mg PO DAILY 08/23/18 08/23/18 Unknown History Pantoprazole [Protonix TAB] 20 mg QDAY 08/23/18 08/23/18 Unknown History QUEtiapine [SEROquel] 300 mg PO QHS 08/23/18 08/23/18 Unknown History SUMAtriptan SUCCINATE [Imitrex] 100 mg PO PRN PRN 08/23/18 08/23/18 Unknown History Sertraline [Zoloft] 150 mg PO QDAY 08/23/18 08/23/18 Unknown History Sulfamethoxazole/Trimethoprim 1 each PO BID #10 tablet 08/23/18 Unknown Rx [Bactrim DS TAB] busPIRone [Buspar] 15 mg PO TID 08/23/18 08/23/18 Unknown History hydroCHLOROthiazide [HCTZ] 12.5 mg PO BID 08/23/18 08/23/18 Unknown History Ketorolac [Toradol] 10 mg PO Q6H PRN #20 tablet 09/05/18 Unknown Rx Ibuprofen [Motrin 600 MG tab] 600 mg PO Q8H PRN #30 tablet 04/21/20 Unknown Rx traMADoL [Ultram 50 MG tab] 50 mg PO Q6HR PRN #12 tablet 04/21/20 Unknown Rx DOXYCYCLINE Hyclate [Vibramycin 100 mg PO Q12HR #28 capsule 09/02/20 Unknown Rx CAP] Ketorolac [Toradol] 10 mg PO Q8H PRN #20 tablet 09/02/20 Unknown Rx Ondansetron [Zofran Odt] 4 mg PO Q6HR PRN #15 tab.rapdis 09/02/20 Unknown Rx metroNIDAZOLE [Flagyl] 500 mg PO Q12HR #14 tab 09/02/20 Unknown Rx traMADoL [Ultram] 50 mg PO Q6HR PRN #12 tablet 09/02/20 Unknown Rx Potassium Chloride [Klor-Con M20] 20 meq PO Q12H #20 tab 03/26/22 Unknown Rx levoFLOXacin [Levaquin TAB] 500 mg PO QDAY #10 tablet 03/26/22 Unknown Rx ED Physical Exam - General Limitations: No Limitations General appearance: alert, in no apparent distress - Head Head exam: Present: atraumatic, normocephalic, normal inspection - Eye Eye exam: Present: normal appearance, PERRL, EOMI Pupils: Present: normal accommodation - ENT ENT exam: Present: normal exam, normal orophraynx, mucous membranes moist, TM's normal bilaterally, normal external ear exam - Neck Neck exam: Present: normal inspection, full ROM. Absent: tenderness - Respiratory Respiratory exam: Present: normal lung sounds bilaterally. Absent: respiratory distress, wheezes, chest wall tenderness, accessory muscle use, decreased breath sounds, prolonged expiratory - Cardiovascular Cardiovascular Exam: Present: regular rate, normal rhythm, normal heart sounds. Absent: systolic murmur, diastolic murmur, rubs, gallop - GI/Abdominal GI/Abdominal exam: Present: soft, normal bowel sounds. Absent: distended, tenderness, guarding, rebound, hyperactive bowel sounds, hypoactive bowel sounds, organomegaly - Extremities Exam Extremities exam: Present: normal inspection, full ROM, normal capillary refill. Absent: tenderness - Back Exam Back exam: Present: normal inspection, full ROM. Absent: tenderness, CVA tenderness (L), muscle spasm, paraspinal tenderness, vertebral tenderness - Neurological Exam Neurological exam: Present: alert, oriented X3, CN II-XII intact, normal gait, reflexes normal - Psychiatric Psychiatric exam: Present: normal mood, depressed, anxious. Absent: homicidal ideation, suicidal ideation - Skin Skin exam: Present: warm, dry, intact, normal color. Absent: rash ED Course Vital Signs 03/26/22 03/26/22 03/26/22 02:58 10:49 10:50 Temperature 98.4 F 98.0 F Pulse Rate 99 H 73 Respiratory 20 20 Rate Blood Pressure 113/82 Blood Pressure 124/68 [Right] O2 Sat by Pulse 95 99 100 Oximetry 03/26/22 12:02 Temperature 98.8 F Pulse Rate 76 Respiratory 20 Rate Blood Pressure Blood Pressure 126/78 [Right] O2 Sat by Pulse 100 Oximetry ED Medical Decision Making - Lab Data Result diagrams: 03/26/22 04:01 03/26/22 04:01 - Medical Decision Making This is a 47-year-old female with a history of migraine headaches, CVA, anxiety, depression, bipolar disorder, osteoarthritis, SLE and chronic pain who presents to the ED for medical clearance for admission at [facility]. Patient states that she would like to be evaluated at [place] for her mental health. In the ED, patient is alert and oriented x3 and is not in any distress. Patient is hemodynamically stable. Lab test results were reviewed and showed acute hypokalemia of 2.4 mmol/L. The etiology of the patient's hypokalemia is hydrochlorothiazide which the patient states for hypertension. EKG shows normal sinus rhythm with a ventricular rate of [address] or T wave abnormalities. Patient is a symptomatic for hypokalemia. Patient was treated in the ED with potassium chloride 40 mEq p.o. x1, patient also received normal saline 1 L IV with potassium chloride 40 mEq piggyback infusion. Patient was also treated in the ED with Levaquin 500 mg p.o. x1 for UTI. Patient was also given additional potassium chloride 40 mill equivalent p.o. x1. Patient shall be observed in the ED until all the potassium IV infusion is complete. Patient shall be discharged home on oral antibiotics for UTI and potassium chloride 20 mEq p.o. twice a day. The patient shall be observed in the ED until all the potassium chloride infusion is complete and thereafter she shall be discharged home on medications having been medically cleared for follow-up with the [facility]. - Differential Diagnosis Depression; anxiety; medical clearance; hypokalemia ED Disposition Clinical Impression: Medical clearance for psychiatric admission, Chronic major depressive disorder, Acute hypokalemia, Acute urinary tract infection Disposition: HOME / SELF CARE / HOMELESS Is pt being admited?: No Does the pt Need Aspirin: No Condition: Stable Instructions: Hypokalemia, Major Depressive Disorder, Adult, [id number], Ur inary Tract Infection, Adult, [id number], Major Depressive Disorder, Adult Additional Instructions: Take medication with food, drink plenty of fluids, follow-up with your primary care physician in 7 to 10 days for reevaluation. Return to the ED immediately if symptoms get worse. Prescriptions: Potassium Chloride [Klor-Con M20] 20 meq PO Q12H #20 tab levoFLOXacin [Levaquin TAB] 500 mg PO QDAY #10 tablet Referrals: [facility] [Provider Group] - 3-5 Days Time of Disposition: 04:24 Print Language: GRENADIAN
[2022-03-26 04:33] LABS: Bacteria,Urine 1+ /HPF (Negative); Bilirubin,Urine NEG (Negative); Blood,Urine SM (Negative); Color,Urine Yellow (Yellow); Mucus,Urine 1+ /HPF; Protein,Urine <15 mg/dL mg/dL (Negative); Urobilinogen,Urine < 2.0 mg/dL (<2.0)
[2022-03-26 04:34] LABS: HCG Qualitative,Urine Negative (Negative)
[2022-03-26 04:41] LABS: Amphetamine Screen,Urine Negative; Benzodiazepines Screen,Urine Negative; Cannabinoid Screen,Urine Negative; Cocaine Screen,Urine Negative; Methadone Screen,Urine Negative; Opiate Screen,Urine Negative
[2022-03-26 04:42] LABS: Hematocrit 41.3 % (30.3-42.9); Hemoglobin 14.1 gm/dl (10.1-14.3); Mean Corpuscular HGB Conc 34 % (30-34); Mean Corpuscular Volume 96 fl (79-97); Platelet Count 254 K/mm3 (140-440); Red Cell Distribution Width 13.3 % (13.2-15.2)
[2022-03-26 04:43] LABS: Alanine Aminotransferase 20 units/L (7-56); Albumin 4.5 g/dL (3.9-5); Blood Urea Nitrogen 18 mg/dL (7-17); Calcium 9.9 mg/dL (8.4-10.2); Eosinophils % (Auto) 3.7 % (0.0-4.3); Hemolysis Index 5; Lymphocytes # (Auto) 2.4 K/mm3 (1.2-5.4); Lymphocytes % (Auto) 41.7 % (13.4-35.0); Monocytes # (Auto) 0.3 K/mm3 (0.0-0.8); Monocytes % (Auto) 5.3 % (0.0-7.3)
[2022-03-26 04:44] LABS: Basophils # (Auto) 0.2 K/mm3 (0.0-0.1); Eosinophils # (Auto) 0.2 K/mm3 (0.0-0.4)
[2022-03-26 04:46] LABS: BUN/Creatinine Ratio 26
[2022-03-26] MEDS ORDERED: POTASSIUM CHLORIDE ER 20 MEQ TAB PO ONE ×2 (04:54→06:46)
[2022-03-26] MEDS ORDERED: levoFLOXacin 500 MG TAB PO ONE (04:56)
[2022-03-26] MEDS ORDERED: NACL 0.9%/KCL 40 MEQ 40 MEQ/1,000 ML BAG IV SCH (05:00)
[2022-03-26 12:03] VITALS: BP 126/78
== END 2022-03-26 13:00 | disposition home or self-care (01) ==
LOC: ED 02:54
DX: F33.1 Major depressive disorder, recurrent, moderate (principal); Z13.30 Encounter for screening examination for mental health and behavioral disorders, unspecified; N39.0 Urinary tract infection, site not specified; E87.6 Hypokalemia; F17.200 Nicotine dependence, unspecified, uncomplicated; Z90.49 Acquired absence of other specified parts of digestive tract; Z79.899 Other long term (current) drug therapy
CPT/HCPCS: 36415; 80053; 80307; 81001; 81025; 84484; 85025; 87086; 93005; 99283; J2704; 80320; G0480

== ENCOUNTER 2022-04-01 10:20 | Emergency (ER) | payer MEDICARE ==
[2022-04-01 13:27] VITALS: BP 105/61
[2022-04-01 14:39] LABS: Basophils % (Auto) 0.7 % (0.0-1.8); Eosinophils # (Auto) 0.1 K/mm3 (0.0-0.4); Eosinophils % (Auto) 1.1 % (0.0-4.3); Hematocrit 40.7 % (30.3-42.9); Hemoglobin 13.6 gm/dl (10.1-14.3); Lymphocytes # (Auto) 2.7 K/mm3 (1.2-5.4); Lymphocytes % (Auto) 46.4 % (13.4-35.0); Mean Corpuscular HGB Conc 33 % (30-34); Mean Corpuscular Volume 98 fl (79-97); Monocytes # (Auto) 0.4 K/mm3 (0.0-0.8); Monocytes % (Auto) 6.8 % (0.0-7.3); Platelet Count 234 K/mm3 (140-440); Red Blood Count 4.16 M/mm3 (3.65-5.03); Red Cell Distribution Width 13.3 % (13.2-15.2)
--- NOTE | 2022-04-01 15:12 | Emergency Department Report ---
ED Abdominal Pain HPI - General Chief Complaint: Urogenital-Female Stated Complaint: BACK/ABD PAIN/POSSIBLE UTI PUI?: No Time Seen by Provider: 04/01/22 14:58 Source: patient Mode of arrival: Ambulatory Limitations: No Limitations - History of Present Illness Initial Comments: Patient is a 47-year-old female that comes to the emergency room with dysuria. She thinks she has a UTI. She states that she just finished Levaquin. She has no fever or chills. No back pain. No vaginal discharge or bleeding. She has irregular menses Associated Symptoms: denies other symptoms - Related Data Home Medications Medication Instructions Recorded Confirmed Last Taken Colchicine 0.6 mg PO DAILY 08/23/18 08/23/18 Unknown Hydroxychloroquine [Plaquenil] 200 mg PO QDAY 08/23/18 08/23/18 Unknown Omeprazole Magnesium [Prilosec] 10 mg PO DAILY 08/23/18 08/23/18 Unknown Pantoprazole [Protonix TAB] 20 mg QDAY 08/23/18 08/23/18 Unknown QUEtiapine [SEROquel] 300 mg PO QHS 08/23/18 08/23/18 Unknown SUMAtriptan SUCCINATE [Imitrex] 100 mg PO PRN PRN 08/23/18 08/23/18 Unknown Sertraline [Zoloft] 150 mg PO QDAY 08/23/18 08/23/18 Unknown busPIRone [Buspar] 15 mg PO TID 08/23/18 08/23/18 Unknown hydroCHLOROthiazide [HCTZ] 12.5 mg PO BID 08/23/18 08/23/18 Unknown Previous Rx's Medication Instructions Recorded Last Taken Type Docusate Sodium [Colace] 100 mg PO BID PRN #20 capsule 08/02/18 Unknown Rx Cyclobenzaprine [Flexeril 10 MG 10 mg PO QHS #20 tablet 08/23/18 Unknown Rx TAB] Meloxicam 15 mg PO DAILY #20 tablet 08/23/18 Unknown Rx Sulfamethoxazole/Trimethoprim 1 each PO BID #10 tablet 08/23/18 Unknown Rx [Bactrim DS TAB] Ketorolac [Toradol] 10 mg PO Q6H PRN #20 tablet 09/05/18 Unknown Rx Ibuprofen [Motrin 600 MG tab] 600 mg PO Q8H PRN #30 tablet 04/21/20 Unknown Rx traMADoL [Ultram 50 MG tab] 50 mg PO Q6HR PRN #12 tablet 04/21/20 Unknown Rx DOXYCYCLINE Hyclate [Vibramycin 100 mg PO Q12HR #28 capsule 09/02/20 Unknown Rx CAP] Ketorolac [Toradol] 10 mg PO Q8H PRN #20 tablet 09/02/20 Unknown Rx Ondansetron [Zofran Odt] 4 mg PO Q6HR PRN #15 tab.rapdis 09/02/20 Unknown Rx metroNIDAZOLE [Flagyl] 500 mg PO Q12HR #14 tab 09/02/20 Unknown Rx traMADoL [Ultram] 50 mg PO Q6HR PRN #12 tablet 09/02/20 Unknown Rx Potassium Chloride [Klor-Con M20] 20 meq PO Q12H #20 tab 03/26/22 Unknown Rx levoFLOXacin [Levaquin TAB] 500 mg PO QDAY #10 tablet 03/26/22 Unknown Rx Fluconazole [Diflucan TAB] 100 mg PO QDAY #1 tablet 04/01/22 Unknown Rx Sulfamethoxazole/Trimethoprim 1 each PO BID #10 tablet 04/01/22 Unknown Rx [Bactrim DS TAB] metroNIDAZOLE [Flagyl] 500 mg PO Q12HR #20 tab 04/01/22 Unknown Rx Allergies Allergy/AdvReac Type Severity Reaction Status Date / Time cefuroxime [From Ceftin] Allergy Unknown Verified 03/26/22 10:52 cephalexin [From Keflex] Allergy Unknown Verified 03/26/22 10:52 metoclopramide [From Reglan] Allergy Unknown Verified 03/26/22 10:52 Penicillins Allergy Shortness Verified 03/26/22 10:52 of Breath ED Review of Systems ROS: Stated complaint: BACK/ABD PAIN/POSSIBLE UTI Other details as noted in HPI Comment: All other systems reviewed and negative ED Past Medical Hx - Past Medical History Previous Medical History?: Yes Hx CVA: Yes (no residual) Hx Arthritis: Yes (RA) Hx Headaches / Migraines: Yes Hx Psychiatric Treatment: Yes (ANXIETY) Additional medical history: back, neck and spine issues, RA, Bechets disease,leaky valve,Blood Clot in heart-resolved, Lupus, Current Fibroids, Current Ovarian cyst - Surgical History Past Surgical History?: Yes Hx Cholecystectomy: Yes Additional Surgical History: abdominal plasty, BOWEL OBSTRUCTION - Social History Smoking Status: Current Every Day Smoker Substance Use Type: None - Medications Home Medications: Home Medications Medication Instructions Recorded Confirmed Last Taken Type Docusate Sodium [Colace] 100 mg PO BID PRN #20 capsule 08/02/18 08/23/18 Unknown Rx Colchicine 0.6 mg PO DAILY 08/23/18 08/23/18 Unknown History Cyclobenzaprine [Flexeril 10 MG 10 mg PO QHS #20 tablet 08/23/18 Unknown Rx TAB] Hydroxychloroquine [Plaquenil] 200 mg PO QDAY 08/23/18 08/23/18 Unknown History Meloxicam 15 mg PO DAILY #20 tablet 08/23/18 Unknown Rx Omeprazole Magnesium [Prilosec] 10 mg PO DAILY 08/23/18 08/23/18 Unknown History Pantoprazole [Protonix TAB] 20 mg QDAY 08/23/18 08/23/18 Unknown History QUEtiapine [SEROquel] 300 mg PO QHS 08/23/18 08/23/18 Unknown History SUMAtriptan SUCCINATE [Imitrex] 100 mg PO PRN PRN 08/23/18 08/23/18 Unknown History Sertraline [Zoloft] 150 mg PO QDAY 08/23/18 08/23/18 Unknown History Sulfamethoxazole/Trimethoprim 1 each PO BID #10 tablet 08/23/18 Unknown Rx [Bactrim DS TAB] busPIRone [Buspar] 15 mg PO TID 08/23/18 08/23/18 Unknown History hydroCHLOROthiazide [HCTZ] 12.5 mg PO BID 08/23/18 08/23/18 Unknown History Ketorolac [Toradol] 10 mg PO Q6H PRN #20 tablet 09/05/18 Unknown Rx Ibuprofen [Motrin 600 MG tab] 600 mg PO Q8H PRN #30 tablet 04/21/20 Unknown Rx traMADoL [Ultram 50 MG tab] 50 mg PO Q6HR PRN #12 tablet 04/21/20 Unknown Rx DOXYCYCLINE Hyclate [Vibramycin 100 mg PO Q12HR #28 capsule 09/02/20 Unknown Rx CAP] Ketorolac [Toradol] 10 mg PO Q8H PRN #20 tablet 09/02/20 Unknown Rx Ondansetron [Zofran Odt] 4 mg PO Q6HR PRN #15 tab.rapdis 09/02/20 Unknown Rx metroNIDAZOLE [Flagyl] 500 mg PO Q12HR #14 tab 09/02/20 Unknown Rx traMADoL [Ultram] 50 mg PO Q6HR PRN #12 tablet 09/02/20 Unknown Rx Potassium Chloride [Klor-Con M20] 20 meq PO Q12H #20 tab 03/26/22 Unknown Rx levoFLOXacin [Levaquin TAB] 500 mg PO QDAY #10 tablet 03/26/22 Unknown Rx Fluconazole [Diflucan TAB] 100 mg PO QDAY #1 tablet 04/01/22 Unknown Rx Sulfamethoxazole/Trimethoprim 1 each PO BID #10 tablet 04/01/22 Unknown Rx [Bactrim DS TAB] metroNIDAZOLE [Flagyl] 500 mg PO Q12HR #20 tab 04/01/22 Unknown Rx ED Physical Exam - General Limitations: No Limitations General appearance: alert, in no apparent distress - Head Head exam: Present: atraumatic, normocephalic - Eye Eye exam: Present: normal appearance - ENT ENT exam: Present: mucous membranes moist - Neck Neck exam: Present: normal inspection - Respiratory Respiratory exam: Present: normal lung sounds bilaterally. Absent: respiratory distress - Cardiovascular Cardiovascular Exam: Present: regular rate, normal rhythm. Absent: systolic murmur, diastolic murmur, rubs, gallop - GI/Abdominal GI/Abdominal exam: Present: soft, normal bowel sounds - Extremities Exam Extremities exam: Present: normal inspection - Back Exam Back exam: Present: normal inspection - Neurological Exam Neurological exam: Present: alert, oriented X3 - Psychiatric Psychiatric exam: Present: normal affect, normal mood - Skin Skin exam: Present: warm, dry, intact, normal color. Absent: rash ED Course Vital Signs 04/01/22 13:24 Temperature 98.7 F Pulse Rate 97 H Respiratory 16 Rate Blood Pressure 105/61 [Left] O2 Sat by Pulse 100 Oximetry ED Medical Decision Making - Lab Data Result diagrams: 04/01/22 13:45 04/01/22 13:45 - Medical Decision Making Lab Results 04/01/22 04/01/22 04/01/22 Range/Units 13:45 13:45 16:49 WBC 5.8 (4.5-11.0) K/mm3 RBC 4.16 (3.65-5.03) M/mm3 Hgb 13.6 (10.1-14.3) gm/dl Hct 40.7 (30.3-42.9) % MCV 98 H (79-97) fl MCH 33 H (28-32) pg MCHC 33 (30-34) % RDW 13.3 (13.2-15.2) % Plt Count 234 (140-440) K/mm3 Lymph % (Auto) 46.4 H (13.4-35.0) % Bee % (Auto) 6.8 (0.0-7.3) % Eos % (Auto) 1.1 (0.0-4.3) % Baso % (Auto) 0.7 (0.0-1.8) % Lymph # (Auto) 2.7 (1.2-5.4) K/mm3 Bee # (Auto) 0.4 (0.0-0.8) K/mm3 Eos # (Auto) 0.1 (0.0-0.4) K/mm3 Baso # (Auto) 0.0 (0.0-0.1) K/mm3 Seg Neutrophils % 45.0 (40.0-70.0) % Seg Neutrophils # 2.6 (1.8-7.7) K/mm3 Sodium 137 (137-145) mmol/L Potassium 3.3 L (3.6-5.0) mmol/L Chloride 100.1 (98-107) mmol/L Carbon Dioxide 27 (22-30) mmol/L Anion Gap 13 mmol/L BUN 24 H (7-17) mg/dL Creatinine 0.8 (0.6-1.2) mg/dL Estimated GFR > 60 ml/min BUN/Creatinine Ratio 30 % Glucose 77 (65-100) mg/dL Calcium 9.8 (8.4-10.2) mg/dL HCG, Quant 4.27 H (0-4) mIU/mL Urine Color (Yellow) Urine Turbidity (Clear) Urine pH (5.0-7.0) Ur Specific [place] (1.003-1.030) Urine Protein (Negative) mg/dL Urine Glucose (UA) (Negative) mg/dL Urine Ketones (Negative) mg/dL Urine Blood (Negative) Urine Nitrite (Negative) Urine Bilirubin (Negative) Urine Urobilinogen (<2.0) mg/dL Ur Leukocyte Esterase (Negative) Urine RBC (Auto) (0.0-6.0) /HPF U Epithel Cells (Auto) (0-13.0) /HPF Urine HCG, Qual (Negative) 04/01/22 Range/Units Unknown WBC (4.5-11.0) K/mm3 RBC (3.65-5.03) M/mm3 Hgb (10.1-14.3) gm/dl Hct (30.3-42.9) % MCV (79-97) fl MCH (28-32) pg MCHC (30-34) % RDW (13.2-15.2) % Plt Count (140-440) K/mm3 Lymph % (Auto) (13.4-35.0) % Bee % (Auto) (0.0-7.3) % Eos % (Auto) (0.0-4.3) % Baso % (Auto) (0.0-1.8) % Lymph # (Auto) (1.2-5.4) K/mm3 Bee # (Auto) (0.0-0.8) K/mm3 Eos # (Auto) (0.0-0.4) K/mm3 Baso # (Auto) (0.0-0.1) K/mm3 Seg Neutrophils % (40.0-70.0) % Seg Neutrophils # (1.8-7.7) K/mm3 Sodium (137-145) mmol/L Potassium (3.6-5.0) mmol/L Chloride (98-107) mmol/L Carbon Dioxide (22-30) mmol/L Anion Gap mmol/L BUN (7-17) mg/dL Creatinine (0.6-1.2) mg/dL Estimated GFR ml/min BUN/Creatinine Ratio % Glucose (65-100) mg/dL Calcium (8.4-10.2) mg/dL HCG, Quant (0-4) mIU/mL Urine Color Yellow (Yellow) Urine Turbidity Clear (Clear) Urine pH 6.0 (5.0-7.0) Ur Specific [place] 1.015 (1.003-1.030) Urine Protein 30 mg/dl (Negative) mg/dL Urine Glucose (UA) Negative (Negative) mg/dL Urine Ketones Negative (Negative) mg/dL Urine Blood Negative (Negative) Urine Nitrite Negative (Negative) Urine Bilirubin Negative (Negative) Urine Urobilinogen 0.0 (<2.0) mg/dL Ur Leukocyte Esterase Negative (Negative) Urine RBC (Auto) 2.0 (0.0-6.0) /HPF U Epithel Cells (Auto) 7.0 (0-13.0) /HPF Urine HCG, Qual Negative (Negative) Vital Signs 04/01/22 13:24 Temperature 98.7 F Pulse Rate 97 H Respiratory 16 Rate Blood Pressure 105/61 [Left] O2 Sat by Pulse 100 Oximetry Patient being sent home on Bactrim. I have confirmed that her phone number is in fact a good 1 so that if her culture grows something positive we can call her for the change treatment. I have also treated her presumptively for BV. She has requested a Diflucan tablet to prevent yeast. Patient being discharged home with discharge plan of care including diet, activity, medications and follow-up. She has been given referral to PCP and [facility]. She verbalizes understanding of plan of care. On discharge patient ambulatory, not ill nontoxic and taking p.o. - Differential Diagnosis Rule out UTI/ Critical care attestation.: If time is entered above; I have spent that time in minutes in the direct care of this critically ill patient, excluding procedure time. ED Disposition Clinical Impression: UTI (urinary tract infection), Bacterial vaginosis Disposition: HOME / SELF CARE / HOMELESS Is pt being admited?: No Does the pt Need Aspirin: No Condition: Stable Instructions: Urinary Tract Infection, Adult, [id number], Bacterial Vaginosis (ED) Additional Instructions: Stay well-hydrated with water. Motrin or Tylenol for pain. Follow-up with primary care should your pain p ersist negative Take antibiotic until its gone. At that time follow-up with PCP to make sure that the UTI is gone away. I am also treating you for presumed BV. And I have given you a Diflucan for yeast Prescriptions: Sulfamethoxazole/Trimethoprim [Bactrim DS TAB] 1 each PO BID #10 tablet Fluconazole [Diflucan TAB] 100 mg PO QDAY #1 tablet metroNIDAZOLE [Flagyl] 500 mg PO Q12HR #20 tab Referrals: RANDY GUERIN MD [Staff Physician] - 3-5 Days Forms: STI Treatment and Prevention Time of Disposition: 17:32
[2022-04-01 15:31] LABS: BUN/Creatinine Ratio 30; Blood Urea Nitrogen 24 mg/dL (7-17); Calcium 9.8 mg/dL (8.4-10.2); Hemolysis Index 8
[2022-04-01 17:19] LABS: Bilirubin,Urine Negative (Negative); Color,Urine Yellow (Yellow)
[2022-04-01 17:20] LABS: Blood,Urine Negative (Negative)
[2022-04-01 17:25] LABS: HCG Qualitative,Urine Negative (Negative)
[2022-04-01 17:31] LABS: Mucus,Urine FEW /HPF
[2022-04-01] MEDS ORDERED: IBUPROFEN 800 MG TAB PO ONE ×2 (17:32→19:50)
== END 2022-04-01 20:05 | disposition home or self-care (01) ==
LOC: ED 10:20
DX: N39.0 Urinary tract infection, site not specified (principal); N76.0 Acute vaginitis; B96.89 Other specified bacterial agents as the cause of diseases classified elsewhere; M19.90 Unspecified osteoarthritis, unspecified site; G43.909 Migraine, unspecified, not intractable, without status migrainosus; F32.A Depression, unspecified; Z86.73 Personal history of transient ischemic attack (TIA), and cerebral infarction without residual deficits; Z90.49 Acquired absence of other specified parts of digestive tract; F17.200 Nicotine dependence, unspecified, uncomplicated; Z88.0 Allergy status to penicillin; Z91.09 Other allergy status, other than to drugs and biological substances; Z79.899 Other long term (current) drug therapy
CPT/HCPCS: 36415; 80048; 81001; 81025; 84702; 85025; 87086; 99283

== ENCOUNTER 2022-04-05 10:19 | Emergency (ER) | payer MEDICARE ==
[2022-04-05 11:08] LABS: Basophils % (Auto) 0.3 % (0.0-1.8); Eosinophils % (Auto) 0.9 % (0.0-4.3); Hematocrit 39.2 % (30.3-42.9); Hemoglobin 13.4 gm/dl (10.1-14.3); Lymphocytes # (Auto) 1.6 K/mm3 (1.2-5.4); Lymphocytes % (Auto) 31.3 % (13.4-35.0); Mean Corpuscular HGB Conc 34 % (30-34); Mean Corpuscular Volume 97 fl (79-97); Monocytes # (Auto) 0.3 K/mm3 (0.0-0.8); Monocytes % (Auto) 6.2 % (0.0-7.3); Platelet Count 240 K/mm3 (140-440); Red Blood Count 4.03 M/mm3 (3.65-5.03)
[2022-04-05 11:19] LABS: INR 0.92 (0.87-1.13)
[2022-04-05 11:20] LABS: Partial Thromboplastin Time 32.1 Sec. (24.2-36.6)
[2022-04-05 11:32] LABS: Alanine Aminotransferase 18 units/L (7-56); Albumin 4.5 g/dL (3.9-5); BUN/Creatinine Ratio 23; Blood Urea Nitrogen 23 mg/dL (7-17); Calcium 9.5 mg/dL (8.4-10.2); Hemolysis Index 7
[2022-04-05 11:53] LABS: Amphetamine Screen,Urine Negative; Benzodiazepines Screen,Urine Negative; Cannabinoid Screen,Urine Negative; Cocaine Screen,Urine Negative; Methadone Screen,Urine Negative; Opiate Screen,Urine Negative
[2022-04-05 12:00] LABS: Bilirubin,Urine NEG (Negative); Blood,Urine NEG (Negative); Color,Urine Amber (Yellow); Mucus,Urine 3+ /HPF; Protein,Urine <15 mg/dL mg/dL (Negative); Urobilinogen,Urine < 2.0 mg/dL (<2.0)
--- NOTE | 2022-04-05 13:27 | Emergency Department Report ---
ED Female HPI - General Chief complaint: Chest Pain Stated complaint: ALLERGIC REACTION/CHEST PAIN Source: patient Mode of arrival: Ambulatory Limitations: No Limitations - History of Present Illness Initial comments: 47-year-old female presents to the ED complaining of dysuria, abdominal spasm x 1 day . Patient states that she was seen here on October and treated for UTI with Bactrim. Patient states that she was unable to take the Bactrim because it caused her to itching. She reported to have a recurrent UTI. Patient states that she also has an ovarian cyst and fibroids that occasion caused her to have abdominal pain. Patient states that she current do not have a [facility] or urology. Patient states that she has urinary frequency and urgency. Patient is alert and oriented x3. No acute distress noted. MD Complaint: dysuria Onset/Timin -: days(s) Severity scale (0 -10): 4 Quality: burning Consistency: intermittent Improves with: none Worsens with: none Are you Now?: No Associated Symptoms: denies other symptoms - Related Data Home Medications Medication Instructions Recorded Confirmed Last Taken Colchicine 0.6 mg PO DAILY 08/23/18 08/23/18 Unknown Hydroxychloroquine [Plaquenil] 200 mg PO QDAY 08/23/18 08/23/18 Unknown Omeprazole Magnesium [Prilosec] 10 mg PO DAILY 08/23/18 08/23/18 Unknown Pantoprazole [Protonix TAB] 20 mg QDAY 08/23/18 08/23/18 Unknown QUEtiapine [SEROquel] 300 mg PO QHS 08/23/18 08/23/18 Unknown SUMAtriptan SUCCINATE [Imitrex] 100 mg PO PRN PRN 08/23/18 08/23/18 Unknown Sertraline [Zoloft] 150 mg PO QDAY 08/23/18 08/23/18 Unknown busPIRone [Buspar] 15 mg PO TID 08/23/18 08/23/18 Unknown hydroCHLOROthiazide [HCTZ] 12.5 mg PO BID 08/23/18 08/23/18 Unknown Previous Rx's Medication Instructions Recorded Last Taken Type Docusate Sodium [Colace] 100 mg PO BID PRN #20 capsule 08/02/18 Unknown Rx Cyclobenzaprine [Flexeril 10 MG 10 mg PO QHS #20 tablet 08/23/18 Unknown Rx TAB] Meloxicam 15 mg PO DAILY #20 tablet 08/23/18 Unknown Rx Sulfamethoxazole/Trimethoprim 1 each PO BID #10 tablet 08/23/18 Unknown Rx [Bactrim DS TAB] Ketorolac [Toradol] 10 mg PO Q6H PRN #20 tablet 09/05/18 Unknown Rx Ibuprofen [Motrin 600 MG tab] 600 mg PO Q8H PRN #30 tablet 04/21/20 Unknown Rx traMADoL [Ultram 50 MG tab] 50 mg PO Q6HR PRN #12 tablet 04/21/20 Unknown Rx DOXYCYCLINE Hyclate [Vibramycin 100 mg PO Q12HR #28 capsule 09/02/20 Unknown Rx CAP] Ketorolac [Toradol] 10 mg PO Q8H PRN #20 tablet 09/02/20 Unknown Rx Ondansetron [Zofran Odt] 4 mg PO Q6HR PRN #15 tab.rapdis 09/02/20 Unknown Rx metroNIDAZOLE [Flagyl] 500 mg PO Q12HR #14 tab 09/02/20 Unknown Rx traMADoL [Ultram] 50 mg PO Q6HR PRN #12 tablet 09/02/20 Unknown Rx Potassium Chloride [Klor-Con M20] 20 meq PO Q12H #20 tab 03/26/22 Unknown Rx levoFLOXacin [Levaquin TAB] 500 mg PO QDAY #10 tablet 03/26/22 Unknown Rx Fluconazole [Diflucan TAB] 100 mg PO QDAY #1 tablet 04/01/22 Unknown Rx Sulfamethoxazole/Trimethoprim 1 each PO BID #10 tablet 04/01/22 Unknown Rx [Bactrim DS TAB] metroNIDAZOLE [Flagyl] 500 mg PO Q12HR #20 tab 04/01/22 Unknown Rx Ciprofloxacin HCl [Ciprofloxacin 750 mg PO DAILY 7 Days #7 tab 04/05/22 Unknown Rx TAB] Fluconazole [Diflucan TAB] 200 mg PO QDAY 2 Days #1 tablet 04/05/22 Unknown Rx Hyoscyamine Subl [Levsin Sl 0.125 0.125 mg SL Q6HR PRN 5 Days #20 tab 04/05/22 Unknown Rx TAB] Allergies Allergy/AdvReac Type Severity Reaction Status Date / Time cefuroxime [From Ceftin] Allergy Unknown Verified 03/26/22 10:52 cephalexin [From Keflex] Allergy Unknown Verified 03/26/22 10:52 metoclopramide [From Reglan] Allergy Unknown Verified 03/26/22 10:52 Penicillins Allergy Shortness Verified 03/26/22 10:52 of Breath ED Review of Systems ROS: Stated complaint: ALLERGIC REACTION/CHEST PAIN Other details as noted in HPI Constitutional: denies: chills, fever Eyes: denies: eye pain, eye discharge, vision change ENT: denies: ear pain, throat pain Respiratory: denies: cough, shortness of breath, wheezing Cardiovascular: denies: chest pain, palpitations Endocrine: no symptoms reported Gastrointestinal: denies: abdominal pain, nausea, diarrhea Genitourinary: dysuria, frequency. denies: urgency, discharge Musculoskeletal: denies: back pain, joint swelling, arthralgia Skin: denies: rash, lesions Neurological: denies: headache, weakness, paresthesias Psychiatric: denies: anxiety, depression Hematological/Lymphatic: denies: easy bleeding, easy bruising ED Past Medical Hx - Past Medical History Hx CVA: Yes (no residual) Hx Arthritis: Yes (RA) Hx Headaches / Migraines: Yes Hx Psychiatric Treatment: Yes (ANXIETY) Additional medical history: back, neck and spine issues, RA, Bechets disease,leaky valve,Blood Clot in heart-resolved, Lupus, Current Fibroids, Current Ovarian cyst - Surgical History Hx Cholecystectomy: Yes Additional Surgical History: abdominal plasty, BOWEL OBSTRUCTION - Social History Smoking Status: Current Every Day Smoker - Medications Home Medications: Home Medications Medication Instructions Recorded Confirmed Last Taken Type Docusate Sodium [Colace] 100 mg PO BID PRN #20 capsule 08/02/18 08/23/18 Unknown Rx Colchicine 0.6 mg PO DAILY 08/23/18 08/23/18 Unknown History Cyclobenzaprine [Flexeril 10 MG 10 mg PO QHS #20 tablet 08/23/18 Unknown Rx TAB] Hydroxychloroquine [Plaquenil] 200 mg PO QDAY 08/23/18 08/23/18 Unknown History Meloxicam 15 mg PO DAILY #20 tablet 08/23/18 Unknown Rx Omeprazole Magnesium [Prilosec] 10 mg PO DAILY 08/23/18 08/23/18 Unknown History Pantoprazole [Protonix TAB] 20 mg QDAY 08/23/18 08/23/18 Unknown History QUEtiapine [SEROquel] 300 mg PO QHS 08/23/18 08/23/18 Unknown History SUMAtriptan SUCCINATE [Imitrex] 100 mg PO PRN PRN 08/23/18 08/23/18 Unknown History Sertraline [Zoloft] 150 mg PO QDAY 08/23/18 08/23/18 Unknown History Sulfamethoxazole/Trimethoprim 1 each PO BID #10 tablet 08/23/18 Unknown Rx [Bactrim DS TAB] busPIRone [Buspar] 15 mg PO TID 08/23/18 08/23/18 Unknown History hydroCHLOROthiazide [HCTZ] 12.5 mg PO BID 08/23/18 08/23/18 Unknown History Ketorolac [Toradol] 10 mg PO Q6H PRN #20 tablet 09/05/18 Unknown Rx Ibuprofen [Motrin 600 MG tab] 600 mg PO Q8H PRN #30 tablet 04/21/20 Unknown Rx traMADoL [Ultram 50 MG tab] 50 mg PO Q6HR PRN #12 tablet 04/21/20 Unknown Rx DOXYCYCLINE Hyclate [Vibramycin 100 mg PO Q12HR #28 capsule 09/02/20 Unknown Rx CAP] Ketorolac [Toradol] 10 mg PO Q8H PRN #20 tablet 09/02/20 Unknown Rx Ondansetron [Zofran Odt] 4 mg PO Q6HR PRN #15 tab.rapdis 09/02/20 Unknown Rx metroNIDAZOLE [Flagyl] 500 mg PO Q12HR #14 tab 09/02/20 Unknown Rx traMADoL [Ultram] 50 mg PO Q6HR PRN #12 tablet 09/02/20 Unknown Rx Potassium Chloride [Klor-Con M20] 20 meq PO Q12H #20 tab 03/26/22 Unknown Rx levoFLOXacin [Levaquin TAB] 500 mg PO QDAY #10 tablet 03/26/22 Unknown Rx Fluconazole [Diflucan TAB] 100 mg PO QDAY #1 tablet 04/01/22 Unknown Rx Sulfamethoxazole/Trimethoprim 1 each PO BID #10 tablet 04/01/22 Unknown Rx [Bactrim DS TAB] metroNIDAZOLE [Flagyl] 500 mg PO Q12HR #20 tab 04/01/22 Unknown Rx Ciprofloxacin HCl [Ciprofloxacin 750 mg PO DAILY 7 Days #7 tab 04/05/22 Unknown Rx TAB] Fluconazole [Diflucan TAB] 200 mg PO QDAY 2 Days #1 tablet 04/05/22 Unknown Rx Hyoscyamine Subl [Levsin Sl 0.125 0.125 mg SL Q6HR PRN 5 Days #20 tab 04/05/22 Unknown Rx TAB] ED Physical Exam - General Limitations: No Limitations General appearance: alert, in no apparent distress - Head Head exam: Present: atraumatic, normocephalic - Eye Eye exam: Present: normal appearance - ENT ENT exam: Present: mucous membranes moist - Neck Neck exam: Present: normal inspection - Respiratory Respiratory exam: Present: normal lung sounds bilaterally. Absent: respiratory distress - Cardiovascular Cardiovascular Exam: Present: regular rate, normal rhythm. Absent: systolic murmur, diastolic murmur, rubs, gallop - GI/Abdominal GI/Abdominal exam: Present: soft, normal bowel sounds - Extremities Exam Extremities exam: Present: normal inspection - Back Exam Back exam: Present: normal inspection - Neurological Exam Neurological exam: Present: alert, oriented X3 - Psychiatric Psychiatric exam: Present: normal affect, normal mood - Skin Skin exam: Present: warm, dry, intact, normal color. Absent: rash ED Course Vital Signs 04/05/22 04/05/22 04/05/22 10:21 14:40 14:41 Temperature 97.9 F Pulse Rate 84 62 Respiratory 18 Rate Blood Pressure 109/66 Blood Pressure 110/59 [Left] O2 Sat by Pulse 96 100 Oximetry ED Medical Decision Making - Lab Data Result diagrams: 04/05/22 10:39 04/05/22 10:39 - Medical Decision Making 47-year-old female presents to the ED complaining of dysuria, abdominal spasm x 1 day . Patient states that she was seen here on October and treated for UTI with Bactrim. Patient states that she was unable to take the Bactrim because it caused her to itching. She reported to have a recurrent UTI. Patient states that she also has an ovarian cyst and fibroids that occasion caused her to have abdominal pain. Patient states that she current do not have a [employer] [facility] or urology. Patient states that she has urinary frequency and urgency. Patient is alert and oriented x3. No acute distress noted. Patient has a positive hCG quantitative count of 4.7. 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 Patient physical examination is unremarkable. Advised patient to follow-up with [facility] and refer patient to urology for for r ecurrent UTI. Rechecked the patient is resting quietly quietly and comfortable and feeling better. I discussed the results of diagnostic study, my clinical impression and the plan for further treatment with the patient. Patient agrees with plan and discharge at this present time. All question addressed. I have given the patient instruction regarding a diagnosis ,expectation ,follow- up and return precaution. I explained to the patient that emergent condition may arise and to return to the ED for new worsen and any new persisting condition. I have explained the importance of following up with the primary care physician or referral physician listed below has instructed. The patient verbalized understanding of discharge instruction. Critical care attestation.: If time is entered above; I have spent that time in minutes in the direct care of this critically ill patient, excluding procedure time. ED Disposition Clinical Impression: UTI (urinary tract infection) Disposition: 01 HOME / SELF CARE / HOMELESS Is pt being admited?: No Does the pt Need Aspirin: No Condition: Stable Instructions: Urinary Tract Infection, Adult, [id number] Additional Instructions: Take medication as prescribed Follow-up with urology Follow-up with [facility] Take medication as prescribed Prescriptions: Ciprofloxacin HCl [Ciprofloxacin TAB] 750 mg PO DAILY 7 Days #7 tab Fluconazole [Diflucan TAB] 200 mg PO QDAY 2 Days #1 tablet Hyoscyamine Subl [Levsin Sl 0.125 TAB] 0.125 mg SL Q6HR PRN 5 Days #20 tab PRN Reason: bladder spasm Referrals: PRIMARY CAREMD [Primary Care Provider] - 3-5 Days MANUEL JAMES MD [Staff Physician] - 3-5 Days [facility] [Provider Group] - 3-5 Days [facility] [Provider Group] - 3-5 Days Forms: Work/School Release Form(ED) Time of Disposition: 13:37
[2022-04-05 14:42] VITALS: BP 110/59
--- NOTE | 2022-04-06 12:24 | Electrocardiograph Report ---
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
== END 2022-04-05 14:42 | disposition home or self-care (01) ==
LOC: ED 10:19
DX: N39.0 Urinary tract infection, site not specified (principal); Z86.73 Personal history of transient ischemic attack (TIA), and cerebral infarction without residual deficits; M19.90 Unspecified osteoarthritis, unspecified site; F41.9 Anxiety disorder, unspecified; G43.909 Migraine, unspecified, not intractable, without status migrainosus; N83.209 Unspecified ovarian cyst, unspecified side; M32.9 Systemic lupus erythematosus, unspecified; Z98.890 Other specified postprocedural states; F17.290 Nicotine dependence, other tobacco product, uncomplicated; Z88.0 Allergy status to penicillin; Z88.1 Allergy status to other antibiotic agents; Z88.8 Allergy status to other drugs, medicaments and biological substances
CPT/HCPCS: 36415; 80053; 80307; 81001; 84484; 84702; 84703; 85025; 85379; 85610; 85730; 87086; 93005; 99283

== ENCOUNTER 2022-04-16 10:26 | Emergency (ER) | payer MEDICARE ==
[2022-04-16 11:24] VITALS: BP 92/60
[2022-04-16 11:34] LABS: Bilirubin,Urine NEG (Negative); Blood,Urine NEG (Negative); Color,Urine Yellow (Yellow); Protein,Urine <15 mg/dL mg/dL (Negative); Urobilinogen,Urine < 2.0 mg/dL (<2.0)
[2022-04-16 11:35] LABS: WBC,Urine < 1.0 /HPF (0.0-6.0)
[2022-04-16 12:02] LABS: RBC,Urine < 1.0 /HPF (0.0-6.0)
== END 2022-04-16 22:50 | disposition left against medical advice (07) ==
LOC: ED 10:26
DX: M54.50 Low back pain, unspecified (principal); Z53.21 Procedure and treatment not carried out due to patient leaving prior to being seen by health care provider
CPT/HCPCS: 81001

== ENCOUNTER 2022-05-12 10:25 | Emergency (ER) | payer MEDICARE ==
[2022-05-12] MEDS ORDERED: MORPHINE 4 MG/1 ML INJ IM ONE (15:00)
[2022-05-12] MEDS ORDERED: ONDANSETRON 4 MG ODT TAB PO ONE (15:00)
--- NOTE | 2022-05-12 15:07 | Emergency Department Report ---
ED Abdominal Pain HPI - General Chief Complaint: Urogenital-Female Stated Complaint: ABD PAIN/PELIVIC PAIN/BURNING URINATION/BLOOD IN S Time Seen by Provider: 05/12/22 14:45 Source: patient Mode of arrival: Ambulatory Limitations: No Limitations - History of Present Illness Initial Comments: 47-year-old white female with a past medical history of lupus, RA, kidney stones, bowel obstruction, cervical mass, and ovarian cyst presents to the emergency department for evaluation of 5-day history of worsening abdominal and lower back pain. She states that pain has been getting worse over the last few days, and when she got up this morning, she had a bowel movement and had what looked like some bloody streaks in it. She states that she is also having what feels like sharp pains in her groin and vaginal area along with dysuria. She denies fever and vaginal discharge. She states that she has had a persistent urinary tract infection for the past several months for which she has been on several antibiotics. She states that pain is worse is 7 out of 10 and is now constant. She states that she has not taken any medication for her symptoms. 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 MD Complaint: abdominal pain -: Gradual, days(s) (5) Location: LLQ, RLQ Radiation: none Migration to: no migration Severity scale (0 -10): 7 Quality: aching, burning Consistency: constant Worsens With: other (Palpation) Associated Symptoms: constipation, dysuria. denies: nausea, vomiting, diarrhea, fever, chills, hematemesis, hematochezia - Related Data Home Medications Medication Instructions Recorded Confirmed Last Taken Colchicine 0.6 mg PO DAILY 08/23/18 08/23/18 Unknown Hydroxychloroquine [Plaquenil] 200 mg PO QDAY 08/23/18 08/23/18 Unknown Omeprazole Magnesium [Prilosec] 10 mg PO DAILY 08/23/18 08/23/18 Unknown Pantoprazole [Protonix TAB] 20 mg QDAY 08/23/18 08/23/18 Unknown QUEtiapine [SEROquel] 300 mg PO QHS 08/23/18 08/23/18 Unknown SUMAtriptan SUCCINATE [Imitrex] 100 mg PO PRN PRN 08/23/18 08/23/18 Unknown Sertraline [Zoloft] 150 mg PO QDAY 08/23/18 08/23/18 Unknown busPIRone [Buspar] 15 mg PO TID 08/23/18 08/23/18 Unknown hydroCHLOROthiazide [HCTZ] 12.5 mg PO BID 08/23/18 08/23/18 Unknown Previous Rx's Medication Instructions Recorded Last Taken Type Docusate Sodium [Colace] 100 mg PO BID PRN #20 capsule 08/02/18 Unknown Rx Cyclobenzaprine [Flexeril 10 MG 10 mg PO QHS #20 tablet 08/23/18 Unknown Rx TAB] Meloxicam 15 mg PO DAILY #20 tablet 08/23/18 Unknown Rx Sulfamethoxazole/Trimethoprim 1 each PO BID #10 tablet 08/23/18 Unknown Rx [Bactrim DS TAB] Ketorolac [Toradol] 10 mg PO Q6H PRN #20 tablet 09/05/18 Unknown Rx Ibuprofen [Motrin 600 MG tab] 600 mg PO Q8H PRN #30 tablet 04/21/20 Unknown Rx traMADoL [Ultram 50 MG tab] 50 mg PO Q6HR PRN #12 tablet 04/21/20 Unknown Rx DOXYCYCLINE Hyclate [Vibramycin 100 mg PO Q12HR #28 capsule 09/02/20 Unknown Rx CAP] Ketorolac [Toradol] 10 mg PO Q8H PRN #20 tablet 09/02/20 Unknown Rx Ondansetron [Zofran Odt] 4 mg PO Q6HR PRN #15 tab.rapdis 09/02/20 Unknown Rx metroNIDAZOLE [Flagyl] 500 mg PO Q12HR #14 tab 09/02/20 Unknown Rx traMADoL [Ultram] 50 mg PO Q6HR PRN #12 tablet 09/02/20 Unknown Rx Potassium Chloride [Klor-Con M20] 20 meq PO Q12H #20 tab 03/26/22 Unknown Rx levoFLOXacin [Levaquin TAB] 500 mg PO QDAY #10 tablet 03/26/22 Unknown Rx Fluconazole [Diflucan TAB] 100 mg PO QDAY #1 tablet 04/01/22 Unknown Rx Sulfamethoxazole/Trimethoprim 1 each PO BID #10 tablet 04/01/22 Unknown Rx [Bactrim DS TAB] metroNIDAZOLE [Flagyl] 500 mg PO Q12HR #20 tab 04/01/22 Unknown Rx Ciprofloxacin HCl [Ciprofloxacin 750 mg PO DAILY 7 Days #7 tab 04/05/22 Unknown Rx TAB] Fluconazole [Diflucan TAB] 200 mg PO QDAY 2 Days #1 tablet 04/05/22 Unknown Rx Hyoscyamine Subl [Levsin Sl 0.125 0.125 mg SL Q6HR PRN 5 Days #20 tab 04/05/22 Unknown Rx TAB] Allergies Allergy/AdvReac Type Severity Reaction Status Date / Time cefuroxime [From Ceftin] Allergy Unknown Verified 03/26/22 10:52 cephalexin [From Keflex] Allergy Unknown Verified 03/26/22 10:52 metoclopramide [From Reglan] Allergy Unknown Verified 03/26/22 10:52 Penicillins Allergy Shortness Verified 03/26/22 10:52 of Breath ED Review of Systems ROS: Stated complaint: ABD PAIN/PELIVIC PAIN/BURNING URINATION/BLOOD IN S Other details as noted in HPI Comment: All other systems reviewed and negative Constitutional: denies: chills, diaphoresis, fever, malaise, weakness Eyes: denies: vision change ENT: denies: throat pain, dental pain, congestion Respiratory: denies: cough, shortness of breath, SOB with exertion, SOB at rest, stridor, wheezing Cardiovascular: denies: chest pain, palpitations Gastrointestinal: abdominal pain, constipation. denies: nausea, vomiting, diarrhea, hematemesis, melena, hematochezia Genitourinary: dysuria. denies: urgency, frequency, hematuria, discharge Musculoskeletal: back pain Neurological: denies: headache, weakness ED Past Medical Hx - Past Medical History Hx CVA: Yes (no residual) Hx Arthritis: Yes (RA) Hx Headaches / Migraines: Yes Hx Psychiatric Treatment: Yes (ANXIETY) Additional medical history: back, neck and spine issues, RA, Bechets disease,leaky valve,Blood Clot in heart-resolved, Lupus, Current Fibroids, Current Ovarian cyst - Surgical History Hx Cholecystectomy: Yes Additional Surgical History: abdominal plasty, BOWEL OBSTRUCTION - Social History Smoking Status: Current Every Day Smoker - Medications Home Medications: Home Medications Medication Instructions Recorded Confirmed Last Taken Type Docusate Sodium [Colace] 100 mg PO BID PRN #20 capsule 08/02/18 08/23/18 Unknown Rx Colchicine 0.6 mg PO DAILY 08/23/18 08/23/18 Unknown History Cyclobenzaprine [Flexeril 10 MG 10 mg PO QHS #20 tablet 08/23/18 Unknown Rx TAB] Hydroxychloroquine [Plaquenil] 200 mg PO QDAY 08/23/18 08/23/18 Unknown History Meloxicam 15 mg PO DAILY #20 tablet 08/23/18 Unknown Rx Omeprazole Magnesium [Prilosec] 10 mg PO DAILY 08/23/18 08/23/18 Unknown History Pantoprazole [Protonix TAB] 20 mg QDAY 08/23/18 08/23/18 Unknown History QUEtiapine [SEROquel] 300 mg PO QHS 08/23/18 08/23/18 Unknown History SUMAtriptan SUCCINATE [Imitrex] 100 mg PO PRN PRN 08/23/18 08/23/18 Unknown History Sertraline [Zoloft] 150 mg PO QDAY 08/23/18 08/23/18 Unknown History Sulfamethoxazole/Trimethoprim 1 each PO BID #10 tablet 08/23/18 Unknown Rx [Bactrim DS TAB] busPIRone [Buspar] 15 mg PO TID 08/23/18 08/23/18 Unknown History hydroCHLOROthiazide [HCTZ] 12.5 mg PO BID 08/23/18 08/23/18 Unknown History Ketorolac [Toradol] 10 mg PO Q6H PRN #20 tablet 09/05/18 Unknown Rx Ibuprofen [Motrin 600 MG tab] 600 mg PO Q8H PRN #30 tablet 04/21/20 Unknown Rx traMADoL [Ultram 50 MG tab] 50 mg PO Q6HR PRN #12 tablet 04/21/20 Unknown Rx DOXYCYCLINE Hyclate [Vibramycin 100 mg PO Q12HR #28 capsule 09/02/20 Unknown Rx CAP] Ketorolac [Toradol] 10 mg PO Q8H PRN #20 tablet 09/02/20 Unknown Rx Ondansetron [Zofran Odt] 4 mg PO Q6HR PRN #15 tab.rapdis 09/02/20 Unknown Rx metroNIDAZOLE [Flagyl] 500 mg PO Q12HR #14 tab 09/02/20 Unknown Rx traMADoL [Ultram] 50 mg PO Q6HR PRN #12 tablet 09/02/20 Unknown Rx Potassium Chloride [Klor-Con M20] 20 meq PO Q12H #20 tab 03/26/22 Unknown Rx levoFLOXacin [Levaquin TAB] 500 mg PO QDAY #10 tablet 03/26/22 Unknown Rx Fluconazole [Diflucan TAB] 100 mg PO QDAY #1 tablet 04/01/22 Unknown Rx Sulfamethoxazole/Trimethoprim 1 each PO BID #10 tablet 04/01/22 Unknown Rx [Bactrim DS TAB] metroNIDAZOLE [Flagyl] 500 mg PO Q12HR #20 tab 04/01/22 Unknown Rx Ciprofloxacin HCl [Ciprofloxacin 750 mg PO DAILY 7 Days #7 tab 04/05/22 Unknown Rx TAB] Fluconazole [Diflucan TAB] 200 mg PO QDAY 2 Days #1 tablet 04/05/22 Unknown Rx Hyoscyamine Subl [Levsin Sl 0.125 0.125 mg SL Q6HR PRN 5 Days #20 tab 04/05/22 Unknown Rx TAB] ED Physical Exam - General Limitations: No Limitations General appearance: alert, in no apparent distress - Head Head exam: Present: atraumatic, normocephalic - Eye Eye exam: Present: normal appearance. Absent: scleral icterus, conjunctival injection, periorbital swelling, periorbital tenderness - ENT ENT exam: Absent: normal exam - Neck Neck exam: Present: normal inspection, full ROM. Absent: tenderness, meningismus, lymphadenopathy - Respiratory Respiratory exam: Present: normal lung sounds bilaterally. Absent: respiratory distress, wheezes, rales, rhonchi, stridor, chest wall tenderness - Cardiovascular Cardiovascular Exam: Present: regular rate, normal heart sounds - GI/Abdominal GI/Abdominal exam: Present: soft, tenderness (Right lower quadrant and left lower quadrant), normal bowel sounds. Absent: distended, guarding, rebound, rigid - Extremities Exam Extremities exam: Present: normal inspection, full ROM, normal capillary refill. Absent: tenderness, pedal edema, joint swelling, calf tenderness - Back Exam Back exam: Present: normal inspection. Absent: CVA tenderness (R), CVA tenderness (L), vertebral tenderness - Neurological Exam Neurological exam: Present: alert, oriented X3, CN II-XII intact, normal gait, reflexes normal. Absent: motor sensory deficit - Psychiatric Psychiatric exam: Present: normal affect, normal mood - Skin Skin exam: Present: warm, dry, intact, normal color ED Course Vital Signs 05/12/22 12:03 Temperature 98.3 F Pulse Rate 70 Respiratory 18 Rate Blood Pressure 98/59 [Right] O2 Sat by Pulse 99 Oximetry ED Medical Decision Making - Lab Data Result diagrams: 05/12/22 17:39 05/12/22 17:39 - Radiology Data Radiology results: report reviewed, image reviewed CT abdomen and pelvis without IV contrast: FINDINGS: LOWER CHEST: No significant abnormality. LIVER: No significant abnormality. GALLBLADDER: Cholecystectomy. BILE DUCTS: No significant abnormality. PANCREAS: No significant abnormality. SPLEEN: No significant abnormality. ADRENALS: No significant abnormality. RIGHT KIDNEY / URETER: No significant abnormality. LEFT KIDNEY / URETER: No significant abnormality. STOMACH / SMALL BOWEL: No significant abnormality. COLON: No significant abnormality. APPENDIX: No significant abnormality. PERITONEUM: No free fluid. No free air. No fluid collection. LYMPH NODES: No significant adenopathy. AORTA / ARTERIES: No significant abnormality. IVC / VEINS: No significant abnormality. URINARY BLADDER: No significant abnormality. REPRODUCTIVE ORGANS: No significant abnormality. ADDITIONAL FINDINGS: None. SKELETAL SYSTEM: No acute abnormality IMPRESSION: 1. There is no obstruction, inflammation, or free air. There are no abnormal fluid collections. - Medical Decision Making 47-year-old white female with a past medical history of lupus, RA, kidney stones, bowel obstruction, cervical mass, and ovarian cyst presents to the emergency department for evaluation of 5-day history of worsening abdominal and lower back pain. She states that pain has been getting worse over the last few days, and when she got up this morning, she had a bowel movement and had what looked like some bloody streaks in it. She states that she is also having what feels like sharp pains in her groin and vaginal area along with dysuria. She denies fever and vaginal discharge. She states that she has had a persistent urinary tract infection for the past several months for which she has been on several antibiotics. She states that pain is worse is 7 out of 10 and is now constant. She states that she has not taken any medication for her symptoms. 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 Physical exam labs, and urine without any acute abnormalities noted. CT scan abdomen and pelvis without any acute abnormalities noted. Patient will be discharged home to follow-up with her primary care provider as planned and return to the emergency department as needed. She verbalizes understanding of and agreement with plan of care. Critical care attestation.: If time is entered above; I have spent that time in minutes in the direct care of this critically ill patient, excluding procedure time. ED Disposition Clinical Impression: Abdominal pain Qualifiers: Abdominal location: generalized Qualified Code(s): R10.84 - Generalized abdominal pain Back pain Qualifiers: Back pain location: low back pain Chronicity: acute Back pain laterality: bilateral Sciatica presence: without sciatica Qualified Code(s): M54.50 - Low back pain, unspecified Disposition: 01 HOME / SELF CARE / HOMELESS Is pt being admited?: No Does the pt Need Aspirin: No Condition: Stable Instructions: Abdominal Pain, Adult, [id number], Acute Back Pain, Adult Additional Instructions: Follow-up with primary care provider as planned. Return to the emergency department as needed. Time of Disposition: 20:40
[2022-05-12 17:59] LABS: Hematocrit 37.6 % (30.3-42.9); Hemoglobin 12.6 gm/dl (10.1-14.3); Mean Corpuscular HGB Conc 34 % (30-34); Mean Corpuscular Volume 96 fl (79-97); Platelet Count 212 K/mm3 (140-440); Red Blood Count 3.91 M/mm3 (3.65-5.03); Red Cell Distribution Width 12.7 % (13.2-15.2)
[2022-05-12] MEDS ORDERED: KETOROLAC 10 MG TAB PO ONE (18:22)
[2022-05-12 18:42] LABS: Bilirubin,Urine NEG (Negative); Blood,Urine NEG (Negative); Color,Urine Yellow (Yellow); Protein,Urine <15 mg/dL mg/dL (Negative); Urobilinogen,Urine < 2.0 mg/dL (<2.0)
[2022-05-12 18:45] LABS: Amorphous Crystals,Urine Few
--- NOTE | 2022-05-12 18:52 | Cat Scan Report ---
CT ABDOMEN AND PELVIS WITHOUT CONTRAST INDICATION / CLINICAL INFORMATION: ABDOMINAL PAIN pelvic pain. TECHNIQUE: Axial CT images were obtained through the abdomen and pelvis without IV contrast. All CT scans at this location are performed using CT dose reduction for ALARA by means of automated exposure control. COMPARISON: 09/01/2020 FINDINGS: LOWER CHEST: No significant abnormality. LIVER: No significant abnormality. GALLBLADDER: Cholecystectomy. BILE DUCTS: No significant abnormality. PANCREAS: No significant abnormality. SPLEEN: No significant abnormality. ADRENALS: No significant abnormality. RIGHT KIDNEY / URETER: No significant abnormality. LEFT KIDNEY / URETER: No significant abnormality. STOMACH / SMALL BOWEL: No significant abnormality. COLON: No significant abnormality. APPENDIX: No significant abnormality. PERITONEUM: No free fluid. No free air. No fluid collection. LYMPH NODES: No significant adenopathy. AORTA / ARTERIES: No significant abnormality. IVC / VEINS: No significant abnormality. URINARY BLADDER: No significant abnormality. REPRODUCTIVE ORGANS: No significant abnormality. ADDITIONAL FINDINGS: None. SKELETAL SYSTEM: No acute abnormality IMPRESSION: 1. There is no obstruction, inflammation, or free air. There are no abnormal fluid collections. Signer Name: Prem Gomez MD Signed: 05/12/2022 6:47 PM Workstation Name: [employer]
[2022-05-12 19:47] LABS: Alanine Aminotransferase 14 units/L (7-56); Albumin 4.3 g/dL (3.9-5); Blood Urea Nitrogen 14 mg/dL (7-17); Calcium 9.4 mg/dL (8.4-10.2); Hemolysis Index 2
[2022-05-12 19:50] LABS: BUN/Creatinine Ratio 20
[2022-05-12 21:13] VITALS: BP 101/63
== END 2022-05-12 21:10 | disposition home or self-care (01) ==
LOC: ED 10:25
DX: R10.9 Unspecified abdominal pain (principal); M54.50 Low back pain, unspecified; Z88.8 Allergy status to other drugs, medicaments and biological substances; Z88.0 Allergy status to penicillin; F17.200 Nicotine dependence, unspecified, uncomplicated
CPT/HCPCS: 36415; 74176; 80053; 81001; 83690; 84702; 85027; 99284; J3490; J2270; Q0162

== ENCOUNTER 2022-06-17 10:00 | Emergency (ER) | payer MEDICARE ==
[2022-06-17 10:14] VITALS: BP 112/68
--- NOTE | 2022-06-17 11:43 | Emergency Department Report ---
ED Abdominal Pain HPI - General Chief Complaint: Nausea/Vomiting/Diarrhea Stated Complaint: GAS/BLOATING/ABD AND GI ISSUES Time Seen by Provider: 06/17/22 10:49 Source: patient Mode of arrival: Ambulatory Limitations: No Limitations - History of Present Illness Initial Comments: 47 YO COMES TO ER TODAY WITH SUPRAPUBIC PAIN AND A POS HOME UA KIT. UA KIT POS FOR LEUKS SO PT CO SHE HAS UTI. SHE ALSO REPORTS FREQUENT BV SHE HAS NOT SEEN PCP OR OB NO FEVER NO CHILLS NO BACK PAIN NO TACHYCARDIA NO HYPOTENSION AMBULATORY AND NAD IN ER -: Gradual, days(s) Severity: mild Severity scale (0 -10): 7 Quality: cramping Improves With: nothing Worsens With: nothing Associated Symptoms: denies other symptoms. denies: nausea, vomiting, diarrhea, fever, chills, constipation, dysuria, hematemesis, hematochezia, melena, hematuria, anorexia, syncope - Related Data Home Medications Medication Instructions Recorded Confirmed Last Taken Colchicine 0.6 mg PO DAILY 08/23/18 08/23/18 Unknown Hydroxychloroquine [Plaquenil] 200 mg PO QDAY 08/23/18 08/23/18 Unknown Omeprazole Magnesium [Prilosec] 10 mg PO DAILY 08/23/18 08/23/18 Unknown Pantoprazole [Protonix TAB] 20 mg QDAY 08/23/18 08/23/18 Unknown QUEtiapine [SEROquel] 300 mg PO QHS 08/23/18 08/23/18 Unknown SUMAtriptan SUCCINATE [Imitrex] 100 mg PO PRN PRN 08/23/18 08/23/18 Unknown Sertraline [Zoloft] 150 mg PO QDAY 08/23/18 08/23/18 Unknown busPIRone [Buspar] 15 mg PO TID 08/23/18 08/23/18 Unknown hydroCHLOROthiazide [HCTZ] 12.5 mg PO BID 08/23/18 08/23/18 Unknown Previous Rx's Medication Instructions Recorded Last Taken Type Docusate Sodium [Colace] 100 mg PO BID PRN #20 capsule 08/02/18 Unknown Rx Cyclobenzaprine [Flexeril 10 MG 10 mg PO QHS #20 tablet 08/23/18 Unknown Rx TAB] Meloxicam 15 mg PO DAILY #20 tablet 08/23/18 Unknown Rx Sulfamethoxazole/Trimethoprim 1 each PO BID #10 tablet 08/23/18 Unknown Rx [Bactrim DS TAB] Ketorolac [Toradol] 10 mg PO Q6H PRN #20 tablet 09/05/18 Unknown Rx Ibuprofen [Motrin 600 MG tab] 600 mg PO Q8H PRN #30 tablet 04/21/20 Unknown Rx traMADoL [Ultram 50 MG tab] 50 mg PO Q6HR PRN #12 tablet 04/21/20 Unknown Rx DOXYCYCLINE Hyclate [Vibramycin 100 mg PO Q12HR #28 capsule 09/02/20 Unknown Rx CAP] Ketorolac [Toradol] 10 mg PO Q8H PRN #20 tablet 09/02/20 Unknown Rx Ondansetron [Zofran Odt] 4 mg PO Q6HR PRN #15 tab.rapdis 09/02/20 Unknown Rx metroNIDAZOLE [Flagyl] 500 mg PO Q12HR #14 tab 09/02/20 Unknown Rx traMADoL [Ultram] 50 mg PO Q6HR PRN #12 tablet 09/02/20 Unknown Rx Potassium Chloride [Klor-Con M20] 20 meq PO Q12H #20 tab 03/26/22 Unknown Rx levoFLOXacin [Levaquin TAB] 500 mg PO QDAY #10 tablet 03/26/22 Unknown Rx Fluconazole [Diflucan TAB] 100 mg PO QDAY #1 tablet 04/01/22 Unknown Rx Sulfamethoxazole/Trimethoprim 1 each PO BID #10 tablet 04/01/22 Unknown Rx [Bactrim DS TAB] metroNIDAZOLE [Flagyl] 500 mg PO Q12HR #20 tab 04/01/22 Unknown Rx Ciprofloxacin HCl [Ciprofloxacin 750 mg PO DAILY 7 Days #7 tab 04/05/22 Unknown Rx TAB] Fluconazole [Diflucan TAB] 200 mg PO QDAY 2 Days #1 tablet 04/05/22 Unknown Rx Hyoscyamine Subl [Levsin Sl 0.125 0.125 mg SL Q6HR PRN 5 Days #20 tab 04/05/22 Unknown Rx TAB] Fluconazole [Diflucan TAB] 100 mg PO QDAY #3 tablet 06/17/22 Unknown Rx Phenazopyridine [Pyridium] 100 mg PO TID PRN #20 tab 06/17/22 Unknown Rx Allergies Allergy/AdvReac Type Severity Reaction Status Date / Time cefuroxime [From Ceftin] Allergy Unknown Verified 06/17/22 10:14 cephalexin [From Keflex] Allergy Unknown Verified 06/17/22 10:14 metoclopramide [From Reglan] Allergy Unknown Verified 06/17/22 10:14 Penicillins Allergy Shortness Verified 06/17/22 10:14 of Breath ED Review of Systems ROS: Stated complaint: GAS/BLOATING/ABD AND GI ISSUES Other details as noted in HPI Comment: All other systems reviewed and negative ED Past Medical Hx - Past Medical History Previous Medical History?: Yes Hx CVA: Yes (no residual) Hx Arthritis: Yes (RA) Hx Headaches / Migraines: Yes Hx Psychiatric Treatment: Yes (ANXIETY) Additional medical history: back, neck and spine issues, RA, Bechets disease,leaky valve,Blood Clot in heart-resolved, Lupus, Current Fibroids, Current Ovarian cyst - Surgical History Past Surgical History?: Yes Hx Cholecystectomy: Yes Additional Surgical History: abdominal plasty, BOWEL OBSTRUCTION - Family History Family history: no significant - Social History Smoking Status: Current Every Day Smoker Substance Use Type: Alcohol - Medications Home Medications: Home Medications Medication Instructions Recorded Confirmed Last Taken Type Docusate Sodium [Colace] 100 mg PO BID PRN #20 capsule 08/02/18 08/23/18 Unknown Rx Colchicine 0.6 mg PO DAILY 08/23/18 08/23/18 Unknown History Cyclobenzaprine [Flexeril 10 MG 10 mg PO QHS #20 tablet 08/23/18 Unknown Rx TAB] Hydroxychloroquine [Plaquenil] 200 mg PO QDAY 08/23/18 08/23/18 Unknown History Meloxicam 15 mg PO DAILY #20 tablet 08/23/18 Unknown Rx Omeprazole Magnesium [Prilosec] 10 mg PO DAILY 08/23/18 08/23/18 Unknown History Pantoprazole [Protonix TAB] 20 mg QDAY 08/23/18 08/23/18 Unknown History QUEtiapine [SEROquel] 300 mg PO QHS 08/23/18 08/23/18 Unknown History SUMAtriptan SUCCINATE [Imitrex] 100 mg PO PRN PRN 08/23/18 08/23/18 Unknown History Sertraline [Zoloft] 150 mg PO QDAY 08/23/18 08/23/18 Unknown History Sulfamethoxazole/Trimethoprim 1 each PO BID #10 tablet 08/23/18 Unknown Rx [Bactrim DS TAB] busPIRone [Buspar] 15 mg PO TID 08/23/18 08/23/18 Unknown History hydroCHLOROthiazide [HCTZ] 12.5 mg PO BID 08/23/18 08/23/18 Unknown History Ketorolac [Toradol] 10 mg PO Q6H PRN #20 tablet 09/05/18 Unknown Rx Ibuprofen [Motrin 600 MG tab] 600 mg PO Q8H PRN #30 tablet 04/21/20 Unknown Rx traMADoL [Ultram 50 MG tab] 50 mg PO Q6HR PRN #12 tablet 04/21/20 Unknown Rx DOXYCYCLINE Hyclate [Vibramycin 100 mg PO Q12HR #28 capsule 09/02/20 Unknown Rx CAP] Ketorolac [Toradol] 10 mg PO Q8H PRN #20 tablet 09/02/20 Unknown Rx Ondansetron [Zofran Odt] 4 mg PO Q6HR PRN #15 tab.rapdis 09/02/20 Unknown Rx metroNIDAZOLE [Flagyl] 500 mg PO Q12HR #14 tab 09/02/20 Unknown Rx traMADoL [Ultram] 50 mg PO Q6HR PRN #12 tablet 09/02/20 Unknown Rx Potassium Chloride [Klor-Con M20] 20 meq PO Q12H #20 tab 03/26/22 Unknown Rx levoFLOXacin [Levaquin TAB] 500 mg PO QDAY #10 tablet 03/26/22 Unknown Rx Fluconazole [Diflucan TAB] 100 mg PO QDAY #1 tablet 04/01/22 Unknown Rx Sulfamethoxazole/Trimethoprim 1 each PO BID #10 tablet 04/01/22 Unknown Rx [Bactrim DS TAB] metroNIDAZOLE [Flagyl] 500 mg PO Q12HR #20 tab 04/01/22 Unknown Rx Ciprofloxacin HCl [Ciprofloxacin 750 mg PO DAILY 7 Days #7 tab 04/05/22 Unknown Rx TAB] Fluconazole [Diflucan TAB] 200 mg PO QDAY 2 Days #1 tablet 04/05/22 Unknown Rx Hyoscyamine Subl [Levsin Sl 0.125 0.125 mg SL Q6HR PRN 5 Days #20 tab 04/05/22 Unknown Rx TAB] Fluconazole [Diflucan TAB] 100 mg PO QDAY #3 tablet 06/17/22 Unknown Rx Phenazopyridine [Pyridium] 100 mg PO TID PRN #20 tab 06/17/22 Unknown Rx ED Physical Exam - General Limitations: No Limitations General appearance: alert, in no apparent distress - Head Head exam: Present: atraumatic, normocephalic - Eye Eye exam: Present: normal appearance - ENT ENT exam: Present: mucous membranes moist - Neck Neck exam: Present: normal inspection - Respiratory Respiratory exam: Present: normal lung sounds bilaterally. Absent: respiratory distress - Cardiovascular Cardiovascular Exam: Present: regular rate, normal rhythm. Absent: systolic murmur, diastolic murmur, rubs, gallop - GI/Abdominal GI/Abdominal exam: Present: soft, normal bowel sounds - Extremities Exam Extremities exam: Present: normal inspection - Back Exam Back exam: Present: normal inspection - Neurological Exam Neurological exam: Present: alert, oriented X3 - Psychiatric Psychiatric exam: Present: normal affect, normal mood - Skin Skin exam: Present: warm, dry, intact, normal color. Absent: rash ED Course Vital Signs 06/17/22 10:10 Temperature 97.6 F Pulse Rate 82 Respiratory 18 Rate Blood Pressure 112/68 [Right] O2 Sat by Pulse 98 Oximetry ED Medical Decision Making - Lab Data Result diagrams: 06/17/22 11:15 06/17/22 11:15 - Medical Decision Making Labs 06/17/22 06/17/22 06/17/22 11:15 11:15 11:30 WBC 5.2 RBC 4.00 Hgb 13.0 Hct 38.1 MCV 95 MCH 33 H MCHC 34 RDW 13.2 Plt Count 231 Lymph % (Auto) 36.7 H Briscoe % (Auto) 6.8 Eos % (Auto) 2.7 Baso % (Auto) 0.3 Lymph # (Auto) 1.9 [place]iscoe # (Auto) 0.4 Eos # (Auto) 0.1 Baso # (Auto) 0.0 Seg Neutrophils % 53.5 Seg Neutrophils # 2.8 Sodium 141 Potassium 3.7 Chloride 100.6 Carbon Dioxide 30 Anion Gap 14 BUN 15 Creatinine 0.8 Estimated GFR > 60 BUN/Creatinine Ratio 19 Glucose 75 Calcium 9.6 Total Bilirubin 0.20 AST 25 ALT 13 Alkaline Phosphatase 77 Total Protein 6.9 Albumin 4.2 Albumin/Globulin Ratio 1.6 Lipase 34 Urine Color Yellow Urine Turbidity Clear Specific Bruce (Man) 1.020 Ur Protein (Man) 1+ Ur Ketones (Man) Negative Urine Bilirubin (Man) Small Urine WBC (Auto) 1.0 Urine RBC (Auto) 4.0 U Epithel Cells (Auto) 4.0 Urine RBC (Manual) Negative Urine Mucus 3+ Urine Yeast (Budding) 2+ Urine HCG, Qual Negative Vital Signs 06/17/22 10:10 Temperature 97.6 F Pulse Rate 82 Respiratory 18 Rate Blood Pressure 112/68 [Right] O2 Sat by Pulse 98 Oximetry PYRIDIUM PO GIVEN PER PT REQUEST LABS NOTED UA NOTED PREG NEG YEAST ON UA- GIVEN DIFLUCAN PT WANTS ANTIBIOTICS FOR UTI - CARLEY EXPLAINED THAT THESE ARE NOT INDICATED AND COULD CAUSE MORE OF A PROBLEM. DC HOME WITH DC PLAN OF CARE INCLUDING DIET, MEDS ACTIVITY AND FOLLOW UP. Critical care attestation.: If time is entered above; I have spent that time in minutes in the direct care of this critically ill patient, excluding procedure time. ED Disposition Clinical Impression: Yeast infection Disposition: HOME / SELF CARE / HOMELESS Is pt being admited?: No Does the pt Need Aspirin: No Condition: Stable Instructions: Vaginal Yeast Infection, Adult Additional Instructions: MED ORDERED TODAY Prescriptions: Fluconazole [Diflucan TAB] 100 mg PO QDAY #3 tablet Phenazopyridine [Pyridium] 100 mg PO TID PRN #20 tab PRN Reason: Pain, Moderate (4-6) Referrals: AD GATICA MD [Staff Physician] - 3-5 Days RANDY GUERIN MD [Primary Care Provider] - 3-5 Days ROLANDO BALTAZAR MD [Staff Physician] - 3-5 Days Forms: Work/School Release Form(ED) Time of Disposition: 13:34
[2022-06-17 11:46] LABS: Basophils % (Auto) 0.3 % (0.0-1.8); Eosinophils # (Auto) 0.1 K/mm3 (0.0-0.4); Eosinophils % (Auto) 2.7 % (0.0-4.3); Hematocrit 38.1 % (30.3-42.9); Lymphocytes # (Auto) 1.9 K/mm3 (1.2-5.4); Lymphocytes % (Auto) 36.7 % (13.4-35.0); Mean Corpuscular HGB Conc 34 % (30-34); Mean Corpuscular Volume 95 fl (79-97); Monocytes # (Auto) 0.4 K/mm3 (0.0-0.8); Monocytes % (Auto) 6.8 % (0.0-7.3); Platelet Count 231 K/mm3 (140-440); Red Cell Distribution Width 13.2 % (13.2-15.2)
[2022-06-17 11:50] LABS: Alanine Aminotransferase 13 units/L (7-56); Albumin 4.2 g/dL (3.9-5); BUN/Creatinine Ratio 19; Blood Urea Nitrogen 15 mg/dL (7-17); Calcium 9.6 mg/dL (8.4-10.2); Hemolysis Index 6
[2022-06-17 13:17] LABS: Mucus,Urine 3+ /HPF
[2022-06-17 13:33] LABS: Color,Urine Yellow (Yellow); HCG Qualitative,Urine Negative (Negative)
[2022-06-17] MEDS ORDERED: IBUPROFEN 800 MG TAB PO ONE (13:42)
[2022-06-17] MEDS ORDERED: PHENAZOPYRIDINE 200 MG TAB PO ONE (13:42)
== END 2022-06-17 14:08 | disposition home or self-care (01) ==
LOC: ED 10:00
DX: B37.9 Candidiasis, unspecified (principal); M19.90 Unspecified osteoarthritis, unspecified site; G43.909 Migraine, unspecified, not intractable, without status migrainosus; F41.9 Anxiety disorder, unspecified; F17.200 Nicotine dependence, unspecified, uncomplicated; Z86.73 Personal history of transient ischemic attack (TIA), and cerebral infarction without residual deficits; Z90.49 Acquired absence of other specified parts of digestive tract; Z88.0 Allergy status to penicillin; Z91.09 Other allergy status, other than to drugs and biological substances; Z79.899 Other long term (current) drug therapy
CPT/HCPCS: 36415; 80053; 81001; 81025; 83690; 85025; 99283

== ENCOUNTER 2022-06-24 08:48 | Emergency (ER) | payer MEDICARE ==
[2022-06-24 09:07] VITALS: BP 107/39
== END 2022-06-24 18:42 | disposition left against medical advice (07) ==
LOC: ED 08:48
DX: R10.9 Unspecified abdominal pain (principal); Z53.21 Procedure and treatment not carried out due to patient leaving prior to being seen by health care provider

== ENCOUNTER 2022-06-24 13:19 | Inpatient (IN) | payer MEDICARE ==
[2022-06-24] MEDS ORDERED: ACETAMINOPHEN 325 MG TAB PO PRN ×2 (13:26→15:34)
[2022-06-24] MEDS: MORPHINE 2 MG/1 ML INJ IV PRN (15:26)
[2022-06-24] MEDS: ONDANSETRON 4 MG/2 ML INJ IV PRN (15:27)
[2022-06-24] MEDS ORDERED: METOCLOPRAMIDE 10 MG/2 ML INJ IV PRN (15:34)
[2022-06-24] MEDS ORDERED: ONDANSETRON 4 MG/2 ML INJ IV PRN (15:34)
--- NOTE | 2022-06-24 17:01 | Consultation ---
History of Present Illness Consult date: 06/24/22 Reason for consult: abdominal pain Chief complaint: abd pain - History of present illness History of present illness: 47-year-old female with a history of headaches, CVA, anxiety, depression, bipolar disorder, osteoarthritis, SLE and chronic pain who presents to the hospital as a direct admit for severe abdominal pain. The pain is described as sharp, diffuse, radiating to the back and chest. The pain has been ongoing for over 1 week but slowly got worse over time. The patient states she has been having some nausea and vomiting. She has been having diarrhea at times and then it will change to very small firm bowel movements. No fevers or chills. She has been trying Tylenol and ibuprofen at home for the pain but states this does not help. She has a history of a bowel obstruction in the past for which she did not undergo surgery. She states that she was hospitalized in [place] for 2 weeks on the ventilator and was found to have a piece of plastic in her intestine. She also has a history of an abdominal hemangioma removal when she was an as well as a laparoscopic cholecystectomy. She has had an EGD and colonoscopy greater than 10 years ago. She has a history of ulcer disease. Patient has had 6 visits to the [facility] emergency room in the last 3 months for various complaints such as abdominal pain, back pain, chest pain, pelvic pain, bloating. CT scan 1 month ago was unremarkable. Past History Past Medical History: GERD, migraines, other (Peptic ulcer disease, lupus, CVA, bipolar d/o, chronic pain) Past Surgical History: cholecystectomy, Other (Hemangioma removal) Social history: smoking (3 cigarettes a day). denies: alcohol abuse Family history: no significant family history Medications and Allergies Allergies Allergy/AdvReac Type Severity Reaction Status Date / Time cefuroxime [From Ceftin] Allergy Unknown Verified 06/17/22 10:14 cephalexin [From Keflex] Allergy Unknown Verified 06/17/22 10:14 metoclopramide [From Reglan] Allergy Unknown Verified 06/17/22 10:14 Penicillins Allergy Shortness Verified 06/17/22 10:14 of Breath Home Medications Medication Instructions Recorded Confirmed Last Taken Type Docusate Sodium [Colace] 100 mg PO BID PRN #20 capsule 08/02/18 08/23/18 Unknown Rx Colchicine 0.6 mg PO DAILY 08/23/18 08/23/18 Unknown History Cyclobenzaprine [Flexeril 10 MG 10 mg PO QHS #20 tablet 08/23/18 Unknown Rx TAB] Hydroxychloroquine [Plaquenil] 200 mg PO QDAY 08/23/18 08/23/18 Unknown History Meloxicam 15 mg PO DAILY #20 tablet 08/23/18 Unknown Rx Omeprazole Magnesium [Prilosec] 10 mg PO DAILY 08/23/18 08/23/18 Unknown History Pantoprazole [Protonix TAB] 20 mg QDAY 08/23/18 08/23/18 Unknown History QUEtiapine [SEROquel] 300 mg PO QHS 08/23/18 08/23/18 Unknown History SUMAtriptan SUCCINATE [Imitrex] 100 mg PO PRN PRN 08/23/18 08/23/18 Unknown History Sertraline [Zoloft] 150 mg PO QDAY 08/23/18 08/23/18 Unknown History Sulfamethoxazole/Trimethoprim 1 each PO BID #10 tablet 08/23/18 Unknown Rx [Bactrim DS TAB] busPIRone [Buspar] 15 mg PO TID 08/23/18 08/23/18 Unknown History hydroCHLOROthiazide [HCTZ] 12.5 mg PO BID 08/23/18 08/23/18 Unknown History Ketorolac [Toradol] 10 mg PO Q6H PRN #20 tablet 09/05/18 Unknown Rx Ibuprofen [Motrin 600 MG tab] 600 mg PO Q8H PRN #30 tablet 04/21/20 Unknown Rx traMADoL [Ultram 50 MG tab] 50 mg PO Q6HR PRN #12 tablet 04/21/20 Unknown Rx DOXYCYCLINE Hyclate [Vibramycin 100 mg PO Q12HR #28 capsule 09/02/20 Unknown Rx CAP] Ketorolac [Toradol] 10 mg PO Q8H PRN #20 tablet 09/02/20 Unknown Rx Ondansetron [Zofran Odt] 4 mg PO Q6HR PRN #15 tab.rapdis 09/02/20 Unknown Rx metroNIDAZOLE [Flagyl] 500 mg PO Q12HR #14 tab 09/02/20 Unknown Rx traMADoL [Ultram] 50 mg PO Q6HR PRN #12 tablet 09/02/20 Unknown Rx Potassium Chloride [Klor-Con M20] 20 meq PO Q12H #20 tab 03/26/22 Unknown Rx levoFLOXacin [Levaquin TAB] 500 mg PO QDAY #10 tablet 03/26/22 Unknown Rx Fluconazole [Diflucan TAB] 100 mg PO QDAY #1 tablet 04/01/22 Unknown Rx Sulfamethoxazole/Trimethoprim 1 each PO BID #10 tablet 04/01/22 Unknown Rx [Bactrim DS TAB] metroNIDAZOLE [Flagyl] 500 mg PO Q12HR #20 tab 04/01/22 Unknown Rx Ciprofloxacin HCl [Ciprofloxacin 750 mg PO DAILY 7 Days #7 tab 04/05/22 Unknown Rx TAB] Fluconazole [Diflucan TAB] 200 mg PO QDAY 2 Days #1 tablet 04/05/22 Unknown Rx Hyoscyamine Subl [Levsin Sl 0.125 0.125 mg SL Q6HR PRN 5 Days #20 tab 04/05/22 Unknown Rx TAB] Fluconazole [Diflucan TAB] 100 mg PO QDAY #3 tablet 06/17/22 Unknown Rx Phenazopyridine [Pyridium] 100 mg PO TID PRN #20 tab 06/17/22 Unknown Rx Active Meds: Active Medications Acetaminophen (Acetaminophen 325 Mg Tab) 650 mg PO Q4H PRN PRN Reason: Pain MILD(1-3)/Fever >100.5/[place] Acetaminophen (Acetaminophen 325 Mg Tab) 650 mg PO Q4H PRN PRN Reason: Pain MILD(1-3)/Fever >100.5/[place] Famotidine (Famotidine 20 Mg/2 Ml Inj) 20 mg IV BID ISMAEL Hydromorphone HCl (Hydromorphone 0.5 Mg/0.5 Ml Inj) 1 mg IV Q3H PRN PRN Reason: Pain , Severe (7-10) Dextrose/Sodium Chloride (D5ns) 1,000 mls @ 100 mls/hr IV DIRECT ISMAEL Metoclopramide HCl (Metoclopramide 10 Mg/2 Ml Inj) 10 mg IV Q6H PRN PRN Reason: Nausea And Vomiting Morphine Sulfate (Morphine 2 Mg/1 Ml Inj) 2 mg IV Q4H PRN PRN Reason: Pain, Moderate (4-6) Last Admin: 06/24/22 15:26 Dose: 2 mg Ondansetron HCl (Ondansetron 4 Mg/2 Ml Inj) 4 mg IV Q8H PRN PRN Reason: Nausea And Vomiting Last Admin: 06/24/22 15:27 Dose: 4 mg Ondansetron HCl (Ondansetron 4 Mg/2 Ml Inj) 4 mg IV Q3H PRN PRN Reason: Nausea And Vomiting Sodium Chloride (Sodium Chloride 0.9% 10 Ml Flush Syringe) 10 ml IV BID ISMAEL Sodium Chloride (Sodium Chloride 0.9% 10 Ml Flush Syringe) 10 ml IV PRN PRN PRN Reason: LINE FLUSH Sodium Chloride (Sodium Chloride 0.9% 10 Ml Flush Syringe) 10 ml IV BID ISMAEL Sodium Chloride (Sodium Chloride 0.9% 10 Ml Flush Syringe) 10 ml IV PRN PRN PRN Reason: LINE FLUSH Review of Systems All systems: negative (10 point ROS performed and negative except for that listed in HPI) Exam Vital Signs Temp Pulse Resp BP Pulse Ox 98.3 F 69 18 111/69 97 06/24/22 15:05 06/24/22 15:05 06/24/22 15:05 06/24/22 15:05 06/24/22 15:05 Narrative exam: Gen.: Awake, alert, oriented x3. No apparent distress ENT: Trachea midline. No lymphadenopathy. No scleral icterus or conjunctival pallor CV: S1, S2 present Respiratory: No audible wheezes Abdomen: Soft, mildly distended, mild diffuse TTP. Well-healed surgical scars. No rebound, rigidity, guarding Extremities: No clubbing, cyanosis, edema Assessment and Plan 47-year-old female with diffuse abdominal pain Plan: 1. Direct admitted to hospitalist service 2. Obtain CBC, CMP 3. CT abdomen and pelvis is pending 4. IV fluid 5. N.p.o. for now 6. As needed pain and nausea control 7. GI prophylaxis Further recs pending results of imaging. Thank you for this consultation. Please call with any questions or concerns. Evaluation and treatment of this patient was during the time of the national and state emergency arising from COVID19 coronavirus pandemic. Treatment and procedures performed meet the current and available best practice and guidelines for patient during the COVID pandemic.
[2022-06-24] MEDS: FAMOTIDINE 20 MG/2 ML INJ IV SCH ×2 (18:01→22:26)
[2022-06-24] MEDS: HYDROmorphone 0.5 MG/0.5 ML INJ IV PRN ×2 (18:02→22:27)
[2022-06-24] MEDS: D5W/0.9% NACL 1,000 ML IV SCH (18:02)
[2022-06-24 18:31] LABS: Basophils % (Auto) 0.6 % (0.0-1.8); Eosinophils # (Auto) 0.1 K/mm3 (0.0-0.4); Eosinophils % (Auto) 2.6 % (0.0-4.3); Hematocrit 33.5 % (30.3-42.9); Lymphocytes # (Auto) 2.3 K/mm3 (1.2-5.4); Lymphocytes % (Auto) 53.7 % (13.4-35.0); Mean Corpuscular HGB Conc 33 % (30-34); Mean Corpuscular Volume 96 fl (79-97); Monocytes # (Auto) 0.3 K/mm3 (0.0-0.8); Monocytes % (Auto) 7.8 % (0.0-7.3); Platelet Count 176 K/mm3 (140-440); Red Blood Count 3.48 M/mm3 (3.65-5.03); Red Cell Distribution Width 13.3 % (13.2-15.2)
[2022-06-24 19:20] LABS: Alanine Aminotransferase 11 units/L (7-56); Albumin 3.9 g/dL (3.9-5); BUN/Creatinine Ratio 15; Blood Urea Nitrogen 12 mg/dL (7-17); Calcium 8.9 mg/dL (8.4-10.2); Hemolysis Index 4
--- NOTE | 2022-06-24 22:00 | Cat Scan Report ---
CT ABDOMEN AND PELVIS WITHOUT CONTRAST INDICATION / CLINICAL INFORMATION: ACUTE ABDOMINAL PAIN, R/O SMALL BOWEL OBSTRUCTION. TECHNIQUE: Axial CT images were obtained through the abdomen and pelvis without IV contrast. All CT scans at this location are performed using CT dose reduction for ALARA by means of automated exposure control. COMPARISON: None available. FINDINGS: LOWER CHEST: Bibasilar subsegmental microatelectasis and small left posterior diaphragmatic fat-conta ining hernia. LIVER: No significant abnormality. GALLBLADDER/BILIARY: Cholecystectomy. PANCREAS: No significant abnormality. SPLEEN: No significant abnormality. ADRENALS: No significant abnormality. KIDNEYS/URETERS: No urolithiasis, hydronephrosis, solid renal mass or other significant abnormality. GI: No acute bowel inflammation, obstruction or evidence for ischemia. Oral contrast extends in the c olon. APPENDIX: No significant abnormality. PERITONEUM: No pneumoperitoneum, free peritoneal fluid or loculated fluid collection. LYMPH NODES: No significant adenopathy. AORTA / ARTERIES: No significant abnormality. URINARY BLADDER: No significant abnormality. REPRODUCTIVE ORGANS: No significant abnormality. SKELETAL SYSTEM: No acute or destructive osseous process. Small benign bone island within the proxima l right femur. ADDITIONAL FINDINGS: None. IMPRESSION: 1. No acute abdominopelvic process. Specifically, no evidence for small bowel obstruction. Signer Name: Drake Cheng MD Signed: 06/24/2022 9:56 PM Workstation Name: [employer]
--- NOTE | 2022-06-25 07:43 | History and Physical Report ---
History of Present Illness Date of examination: 06/24/22 Date of admission: 06/24/22 13:19 Chief complaint: Chart increasing abdominal distention for 1 week History of present illness: 47-year-old female with history of migraine headaches and bipolar disorder and lupus with chronic pain admitted for increasing abdominal abdominal pain associated with nausea. Patient had 61s to the emergency room at [address] [place] [address] for abdominal pain. Patient's primary care physician called [facility] for direct admit for possible small bowel obstruction. Primary care he apparently has done ultrasound and diagnosed small bowel obstruction. Patient being admitted for further work-up including abdominal CAT scan and chemistries. Also surgical consult requested. No fever or chills. Past History Past Medical History: GERD, migraines, other (Peptic ulcer disease, lupus, CVA, bipolar d/o, chronic pain) Past Surgical History: cholecystectomy, Other (Hemangioma removal) Social history: smoking (3 cigarettes a day). denies: alcohol abuse Family history: no significant family history Past History Past Medical History: GERD, migraines, other (Peptic ulcer disease, lupus, CVA, bipolar d/o, chronic pain) Past Surgical History: cholecystectomy, Other (Hemangioma removal) Social history: smoking (3 cigarettes a day). denies: alcohol abuse Family history: no significant family history Medications and Allergies Allergies Allergy/AdvReac Type Severity Reaction Status Date / Time cefuroxime [From Ceftin] Allergy Unknown Verified 06/17/22 10:14 cephalexin [From Keflex] Allergy Unknown Verified 06/17/22 10:14 metoclopramide [From Reglan] Allergy Unknown Verified 06/17/22 10:14 Penicillins Allergy Shortness Verified 06/17/22 10:14 of Breath Home Medications Medication Instructions Recorded Confirmed Last Taken Type Docusate Sodium [Colace] 100 mg PO BID PRN #20 capsule 08/02/18 08/23/18 Unknown Rx Colchicine 0.6 mg PO DAILY 08/23/18 08/23/18 Unknown History Cyclobenzaprine [Flexeril 10 MG 10 mg PO QHS #20 tablet 08/23/18 Unknown Rx TAB] Hydroxychloroquine [Plaquenil] 200 mg PO QDAY 08/23/18 08/23/18 Unknown History Meloxicam 15 mg PO DAILY #20 tablet 08/23/18 Unknown Rx Omeprazole Magnesium [Prilosec] 10 mg PO DAILY 08/23/18 08/23/18 Unknown History Pantoprazole [Protonix TAB] 20 mg QDAY 08/23/18 08/23/18 Unknown History QUEtiapine [SEROquel] 300 mg PO QHS 08/23/18 08/23/18 Unknown History SUMAtriptan SUCCINATE [Imitrex] 100 mg PO PRN PRN 08/23/18 08/23/18 Unknown History Sertraline [Zoloft] 150 mg PO QDAY 08/23/18 08/23/18 Unknown History Sulfamethoxazole/Trimethoprim 1 each PO BID #10 tablet 08/23/18 Unknown Rx [Bactrim DS TAB] busPIRone [Buspar] 15 mg PO TID 08/23/18 08/23/18 Unknown History hydroCHLOROthiazide [HCTZ] 12.5 mg PO BID 08/23/18 08/23/18 Unknown History Ketorolac [Toradol] 10 mg PO Q6H PRN #20 tablet 09/05/18 Unknown Rx Ibuprofen [Motrin 600 MG tab] 600 mg PO Q8H PRN #30 tablet 04/21/20 Unknown Rx traMADoL [Ultram 50 MG tab] 50 mg PO Q6HR PRN #12 tablet 04/21/20 Unknown Rx DOXYCYCLINE Hyclate [Vibramycin 100 mg PO Q12HR #28 capsule 09/02/20 Unknown Rx CAP] Ketorolac [Toradol] 10 mg PO Q8H PRN #20 tablet 09/02/20 Unknown Rx Ondansetron [Zofran Odt] 4 mg PO Q6HR PRN #15 tab.rapdis 09/02/20 Unknown Rx metroNIDAZOLE [Flagyl] 500 mg PO Q12HR #14 tab 09/02/20 Unknown Rx traMADoL [Ultram] 50 mg PO Q6HR PRN #12 tablet 09/02/20 Unknown Rx Potassium Chloride [Klor-Con M20] 20 meq PO Q12H #20 tab 03/26/22 Unknown Rx levoFLOXacin [Levaquin TAB] 500 mg PO QDAY #10 tablet 03/26/22 Unknown Rx Fluconazole [Diflucan TAB] 100 mg PO QDAY #1 tablet 04/01/22 Unknown Rx Sulfamethoxazole/Trimethoprim 1 each PO BID #10 tablet 04/01/22 Unknown Rx [Bactrim DS TAB] metroNIDAZOLE [Flagyl] 500 mg PO Q12HR #20 tab 04/01/22 Unknown Rx Ciprofloxacin HCl [Ciprofloxacin 750 mg PO DAILY 7 Days #7 tab 04/05/22 Unknown Rx TAB] Fluconazole [Diflucan TAB] 200 mg PO QDAY 2 Days #1 tablet 04/05/22 Unknown Rx Hyoscyamine Subl [Levsin Sl 0.125 0.125 mg SL Q6HR PRN 5 Days #20 tab 04/05/22 Unknown Rx TAB] Fluconazole [Diflucan TAB] 100 mg PO QDAY #3 tablet 06/17/22 Unknown Rx Phenazopyridine [Pyridium] 100 mg PO TID PRN #20 tab 06/17/22 Unknown Rx Active Meds: Active Medications Acetaminophen (Acetaminophen 325 Mg Tab) 650 mg PO Q4H PRN PRN Reason: Pain MILD(1-3)/Fever >100.5/[place]OULD Dicyclomine HCl (Dicyclomine 20 Mg Tab) 20 mg PO QID [facility] Famotidine (Famotidine 20 Mg/2 Ml Inj) 20 mg IV BID [facility] Last Admin: 06/24/22 22:26 Dose: 20 mg Hydromorphone HCl (Hydromorphone 0.5 Mg/0.5 Ml Inj) 1 mg IV Q3H PRN PRN Reason: Pain , Severe (7-10) Last Admin: 06/24/22 22:27 Dose: 1 mg Dextrose/Sodium Chloride (D5ns) 1,000 mls @ 100 mls/hr IV DIRECT ISMAEL Last Admin: 06/24/22 18:02 Dose: 100 mls/hr Morphine Sulfate (Morphine 2 Mg/1 Ml Inj) 2 mg IV Q4H PRN PRN Reason: Pain, Moderate (4-6) Last Admin: 06/24/22 15:26 Dose: 2 mg Ondansetron HCl (Ondansetron 4 Mg/2 Ml Inj) 4 mg IV Q8H PRN PRN Reason: Nausea And Vomiting Last Admin: 06/24/22 15:27 Dose: 4 mg Sodium Chloride (Sodium Chloride 0.9% 10 Ml Flush Syringe) 10 ml IV BID [facility] Last Admin: 06/24/22 22:56 Dose: 10 ml Sodium Chloride (Sodium Chloride 0.9% 10 Ml Flush Syringe) 10 ml IV PRN PRN PRN Reason: LINE FLUSH Review of Systems All systems: negative Gastrointestinal: abdominal pain (Pain is about 8 on a scale of 1-10. Intermittent nature.), nausea Exam - Constitutional Vitals: Temp Pulse Resp BP Pulse Ox 97.8 F 73 18 102/67 99 06/25/22 05:00 06/25/22 05:00 06/25/22 05:00 06/25/22 05:00 06/25/22 05:00 General appearance: Present: no acute distress, well-nourished - EENT Eyes: Present: PERRL ENT: hearing intact, clear oral mucosa - Neck Neck: Present: supple, normal ROM - Respiratory Respiratory effort: normal Respiratory: bilateral: CTA - Cardiovascular Heart rate: 78 Rhythm: regular Heart Sounds: Present: S1 & S2. Absent: rub, click - Extremities Extremities: pulses symmetrical, No edema Peripheral Pulses: within normal limits - Abdominal General gastrointestinal: Present: tender, distended, hypoactive bowel sounds Localized gastrointestinal: tender: diffuse, guarding: diffuse Female genitourinary: Present: normal - Rectal Rectal Exam: deferred - Integumentary Integumentary: Present: clear, warm, dry - Musculoskeletal Musculoskeletal: gait normal, strength equal bilaterally - Psychiatric Psychiatric: appropriate mood/affect, intact judgment & insight - Neurologic Neurologic: CNII-XII intact, moves all extremities - Allied Health Allied health notes reviewed: nursing, case management Results - Labs CBC & Chem 7: 06/24/22 17:57 06/24/22 17:57 Labs: Laboratory Last Values WBC 4.3 K/mm3 (4.5-11.0) L 06/24/22 17:57 RBC 3.48 M/mm3 (3.65-5.03) L 06/24/22 17:57 Hgb 11.0 gm/dl (10.1-14.3) 06/24/22 17:57 Hct 33.5 % (30.3-42.9) 06/24/22 17:57 MCV 96 fl (79-97) 06/24/22 17:57 MCH 32 pg (28-32) 06/24/22 17:57 MCHC 33 % (30-34) 06/24/22 17:57 RDW 13.3 % (13.2-15.2) 06/24/22 17:57 Plt Count 176 K/mm3 (140-440) 06/24/22 17:57 Lymph % (Auto) 53.7 % (13.4-35.0) H 06/24/22 17:57 [place] % (Auto) 7.8 % (0.0-7.3) H 06/24/22 17:57 Eos % (Auto) 2.6 % (0.0-4.3) 06/24/22 17:57 Baso % (Auto) 0.6 % (0.0-1.8) 06/24/22 17:57 Lymph # (Auto) 2.3 K/mm3 (1.2-5.4) 06/24/22 17:57 [place] # (Auto) 0.3 K/mm3 (0.0-0.8) 06/24/22 17:57 Eos # (Auto) 0.1 K/mm3 (0.0-0.4) 06/24/22 17:57 Baso # (Auto) 0.0 K/mm3 (0.0-0.1) 06/24/22 17:57 Seg Neutrophils % 35.3 % (40.0-70.0) L 06/24/22 17:57 Seg Neutrophils # 1.5 K/mm3 (1.8-7.7) L 06/24/22 17:57 Sodium 142 mmol/L (137-145) 06/24/22 17:57 Potassium 3.8 mmol/L (3.6-5.0) 06/24/22 17:57 Chloride 107.0 mmol/L (98-107) 06/24/22 17:57 Carbon Dioxide 26 mmol/L (22-30) 06/24/22 17:57 Anion Gap 13 mmol/L 06/24/22 17:57 BUN 12 mg/dL (7-17) 06/24/22 17:57 Creatinine 0.8 mg/dL (0.6-1.2) 06/24/22 17:57 Estimated GFR > 60 ml/min 06/24/22 17:57 BUN/Creatinine Ratio 15 % 06/24/22 17:57 Glucose 104 mg/dL (65-100) H 06/24/22 17:57 Calcium 8.9 mg/dL (8.4-10.2) 06/24/22 17:57 Total Bilirubin 0.20 mg/dL (0.1-1.2) 06/24/22 17:57 AST 22 units/L (5-40) 06/24/22 17:57 ALT 11 units/L (7-56) 06/24/22 17:57 Alkaline Phosphatase 57 units/L (35-129) 06/24/22 17:57 Total Protein 5.9 g/dL (6.3-8.2) L 06/24/22 17:57 Albumin 3.9 g/dL (3.9-5) 06/24/22 17:57 Albumin/Globulin Ratio 2.0 % 06/24/22 17:57 - Imaging and Cardiology CT scan - abdomen: report reviewed Imaging and Cardiology: CT of the abdomen No acute abdominopelvic process. Specifically no evidence for small bowel obstruction. Ngo/IV: Voiding Method Toilet Assessment and Plan Advance Directives: Yes (Full code) VTE prophylaxis?: Chemical Plan of care discussed with patient/family: Yes - Patient Problems (1) Acute abdominal pain Current Visit: Yes Status: Acute Plan to address problem: Differential diagnosis of small bowel obstruction versus acute/chronic pain secondary to adhesions Surgical consult requested Abdominal CAT scan does not show any small bowel obstruction (2) ED (generalized anxiety disorder) Current Visit: Yes Status: Chronic Plan to address problem: Hold BuSpar for now No other medications for now (3) DVT prophylaxis Current Visit: Yes Status: Acute Plan to address problem: On anticoagulation GI prophylaxis (4) Advance care planning Current Visit: Yes Status: Acute Plan to address problem: Disease education conducted, care plan discussed, diagnosis discussed and prognosis discussed. Patient acknowledges care plan. +30 minutes.
[2022-06-25] MEDS: ONDANSETRON 4 MG/2 ML INJ IV PRN ×2 (07:49→16:55)
[2022-06-25] MEDS: DICYCLOMINE 20 MG TAB PO SCH ×4 (08:59→21:22)
[2022-06-25] MEDS: FAMOTIDINE 20 MG/2 ML INJ IV SCH ×2 (08:59→21:22)
--- NOTE | 2022-06-25 10:46 | Progress Note ---
Assessment and Plan Assessment and plan: -- Acute abdominal pain/abdominal distention CT abdomen and pelvis; no acute abnormality noted, no evidence of small bowel obstruction Surgery evaluation and recommendation noted and appreciated Surgeon recommended GI consult, -- ED (generalized anxiety disorder) Resume home medication BuSpar --Migraine headache ; Imitrex as needed Supportive care Antiemetics for nausea --Tobacco use; Smoking cessation counseling done, strongly advised to quit Recent sequelae of long-term smoking discussed with the patient Advised nicotine patch --Smoking cessation counseling 15 to 20 minutes - prophylaxis Current Visit: Yes Status: Acute Plan to address problem: On anticoagulation GI prophylaxis - Advance care planning Disease education conducted, care plan discussed, diagnosis discussed and prognosis discussed. Patient acknowledges care plan. +30 minutes. Follow surgery, GI evaluation recommendations Closely monitor the patient and adjust management as needed Discussed with surgeon Dr. Vargas Plan of care reviewed with patient her nurse History Interval history: I have seen and examined the patient at the bedside Patient's chart and medications reviewed Patient complains of severe nausea vomiting As well as migraine headaches Vital signs noted Hospitalist Physical - Constitutional Vitals: Temp Pulse Resp BP Pulse Ox 97.8 F 73 18 102/67 99 06/25/22 05:00 06/25/22 05:00 06/25/22 05:00 06/25/22 05:00 06/25/22 05:00 General appearance: Present: mild distress, well-nourished - EENT Eyes: Present: PERRL, EOM intact - Neck Neck: Present: supple, normal ROM - Respiratory Respiratory effort: normal Respiratory: bilateral: diminished, negative: rales, rhonchi, wheezing - Cardiovascular Rhythm: regular Heart Sounds: Present: S1 & S2 - Extremities Extremities: no ischemia, No edema - Abdominal General gastrointestinal: soft, tender (No guarding no rigidity), distended (Mildly distended), normal bowel sounds - Integumentary Integumentary: Present: clear, warm - Psychiatric Psychiatric: appropriate mood/affect, cooperative - Neurologic Neurologic: CNII-XII intact, moves all extremities Results - Labs CBC & Chem 7: 06/24/22 17:57 06/24/22 17:57 Labs: Laboratory Last Values WBC 4.3 K/mm3 (4.5-11.0) L 06/24/22 17:57 RBC 3.48 M/mm3 (3.65-5.03) L 06/24/22 17:57 Hgb 11.0 gm/dl (10.1-14.3) 06/24/22 17:57 Hct 33.5 % (30.3-42.9) 06/24/22 17:57 MCV 96 fl (79-97) 06/24/22 17:57 MCH 32 pg (28-32) 06/24/22 17:57 MCHC 33 % (30-34) 06/24/22 17:57 RDW 13.3 % (13.2-15.2) 06/24/22 17:57 Plt Count 176 K/mm3 (140-440) 06/24/22 17:57 Lymph % (Auto) 53.7 % (13.4-35.0) H 06/24/22 17:57 [place] % (Auto) 7.8 % (0.0-7.3) H 06/24/22 17:57 Eos % (Auto) 2.6 % (0.0-4.3) 06/24/22 17:57 Baso % (Auto) 0.6 % (0.0-1.8) 06/24/22 17:57 Lymph # (Auto) 2.3 K/mm3 (1.2-5.4) 06/24/22 17:57 [place] # (Auto) 0.3 K/mm3 (0.0-0.8) 06/24/22 17:57 Eos # (Auto) 0.1 K/mm3 (0.0-0.4) 06/24/22 17:57 Baso # (Auto) 0.0 K/mm3 (0.0-0.1) 06/24/22 17:57 Seg Neutrophils % 35.3 % (40.0-70.0) L 06/24/22 17:57 Seg Neutrophils # 1.5 K/mm3 (1.8-7.7) L 06/24/22 17:57 Sodium 142 mmol/L (137-145) 06/24/22 17:57 Potassium 3.8 mmol/L (3.6-5.0) 06/24/22 17:57 Chloride 107.0 mmol/L (98-107) 06/24/22 17:57 Carbon Dioxide 26 mmol/L (22-30) 06/24/22 17:57 Anion Gap 13 mmol/L 06/24/22 17:57 BUN 12 mg/dL (7-17) 06/24/22 17:57 Creatinine 0.8 mg/dL (0.6-1.2) 06/24/22 17:57 Estimated GFR > 60 ml/min 06/24/22 17:57 BUN/Creatinine Ratio 15 % 06/24/22 17:57 Glucose 104 mg/dL (65-100) H 06/24/22 17:57 Calcium 8.9 mg/dL (8.4-10.2) 06/24/22 17:57 Total Bilirubin 0.20 mg/dL (0.1-1.2) 06/24/22 17:57 AST 22 units/L (5-40) 06/24/22 17:57 ALT 11 units/L (7-56) 06/24/22 17:57 Alkaline Phosphatase 57 units/L (35-129) 06/24/22 17:57 Total Protein 5.9 g/dL (6.3-8.2) L 06/24/22 17:57 Albumin 3.9 g/dL (3.9-5) 06/24/22 17:57 Albumin/Globulin Ratio 2.0 % 06/24/22 17:57 Ngo/IV: Voiding Method Toilet Active Medications - Current Medications Current Medications: Generic Name Dose Route Start Last Admin Trade Name Freq PRN Reason Stop Dose Admin Acetaminophen 650 mg 06/24/22 15:34 06/25/22 07:49 Acetaminophen 325 Mg Tab PO 650 mg Q4H PRN Administration Pain MILD(1-3)/Fever >100.5/[place]OULD Dicyclomine HCl 20 mg 06/25/22 10:00 06/25/22 08:59 Dicyclomine 20 Mg Tab PO 20 mg QID ISMAEL Administration Docusate Sodium 100 mg 06/25/22 11:00 Docusate Sodium 100 Mg Cap PO BID ISMAEL Famotidine 20 mg 06/24/22 16:00 06/25/22 08:59 Famotidine 20 Mg/2 Ml Inj IV 20 mg BID ISMAEL Administration Hydromorphone HCl 1 mg 06/24/22 15:34 06/24/22 22:27 Hydromorphone 0.5 Mg/0.5 Ml Inj IV 1 mg Q3H PRN Administration Pain , Severe (7-10) Dextrose/Sodium Chloride 1,000 mls @ 100 mls/hr 06/24/22 16:00 06/24/22 18:02 D5ns IV 100 mls/hr DIRECT ISMAEL Administration Morphine Sulfate 2 mg 06/24/22 13:26 06/24/22 15:26 Morphine 2 Mg/1 Ml Inj IV 2 mg Q4H PRN Administration Pain, Moderate (4-6) Ondansetron HCl 4 mg 06/24/22 13:26 06/25/22 07:49 Ondansetron 4 Mg/2 Ml Inj IV 4 mg Q8H PRN Administration Nausea And Vomiting Polyethylene Glycol 17 gm 06/25/22 10:31 Polyethylene Glycol 3350 17 Gm Powder PO 06/25/22 10:32 ONCE ONE Sodium Chloride 10 ml 06/24/22 22:00 06/25/22 09:00 Sodium Chloride 0.9% 10 Ml Flush Syringe IV 10 ml BID ISMAEL Administration Sodium Chloride 10 ml 06/24/22 15:34 Sodium Chloride 0.9% 10 Ml Flush Syringe IV PRN PRN LINE FLUSH
--- NOTE | 2022-06-25 10:53 | Progress Note ---
Assessment and Plan 47-year-old female with diffuse abdominal pain Labs and imaging reviewed. WBC and lytes unremarkable. CT A/P - no acute findings. Plan: 1. Start CLD -> adv as grayson 2. start bentyl and bowel regimen 3. Recommend GI consult 4. No acute surgical intervention - will s/o Discussed with Dr. Osorio. Thank you. Please call with any questions or concerns. Evaluation and treatment of this patient was during the time of the national and state emergency arising from COVID19 coronavirus pandemic. Treatment and procedures performed meet the current and available best practice and guidelines for patient during the COVID pandemic. Subjective Date of service: 06/25/22 Narrative: Pt sleeping comfortably in bed Objective Vital Signs - 12hr 06/25/22 06/25/22 06/25/22 00:36 03:02 05:00 Temperature 97.8 F 97.8 F Pulse Rate 68 73 Respiratory 20 18 Rate Blood Pressure 86/48 102/67 [Right] O2 Sat by Pulse 95 96 99 Oximetry - General physical appearance Narrative Exam: Gen.: Sleeping comfortably in bed. NAD - Labs 06/24/22 17:57 06/24/22 17:57 Diabetes panel 06/24/22 Range/Units 17:57 Sodium 142 (137-145) mmol/L Potassium 3.8 (3.6-5.0) mmol/L Chloride 107.0 (98-107) mmol/L Carbon Dioxide 26 (22-30) mmol/L BUN 12 (7-17) mg/dL Creatinine 0.8 (0.6-1.2) mg/dL Glucose 104 H (65-100) mg/dL Calcium 8.9 (8.4-10.2) mg/dL AST 22 (5-40) units/L ALT 11 (7-56) units/L Alkaline Phosphatase 57 (35-129) units/L Total Protein 5.9 L (6.3-8.2) g/dL Albumin 3.9 (3.9-5) g/dL Calcium panel 06/24/22 Range/Units 17:57 Calcium 8.9 (8.4-10.2) mg/dL Albumin 3.9 (3.9-5) g/dL Pituitary panel 06/24/22 Range/Units 17:57 Sodium 142 (137-145) mmol/L Potassium 3.8 (3.6-5.0) mmol/L Chloride 107.0 (98-107) mmol/L Carbon Dioxide 26 (22-30) mmol/L BUN 12 (7-17) mg/dL Creatinine 0.8 (0.6-1.2) mg/dL Glucose 104 H (65-100) mg/dL Calcium 8.9 (8.4-10.2) mg/dL Adrenal panel 06/24/22 Range/Units 17:57 Sodium 142 (137-145) mmol/L Potassium 3.8 (3.6-5.0) mmol/L Chloride 107.0 (98-107) mmol/L Carbon Dioxide 26 (22-30) mmol/L BUN 12 (7-17) mg/dL Creatinine 0.8 (0.6-1.2) mg/dL Glucose 104 H (65-100) mg/dL Calcium 8.9 (8.4-10.2) mg/dL Total Bilirubin 0.20 (0.1-1.2) mg/dL AST 22 (5-40) units/L ALT 11 (7-56) units/L Alkaline Phosphatase 57 (35-129) units/L Total Protein 5.9 L (6.3-8.2) g/dL Albumin 3.9 (3.9-5) g/dL
[2022-06-25] MEDS ORDERED: POLYETHYLENE GLYCOL 3350 17 GM POWDER PO SCH (11:00)
[2022-06-25] MEDS ORDERED: SUMAtriptan SUCCINATE 25 MG TAB PO PRN (11:42)
[2022-06-25] MEDS ORDERED: SUMAtriptan SUCCINATE 6 MG/0.5 ML INJ SUB-Q NR (11:42)
[2022-06-25] MEDS: DOCUSATE SODIUM 100 MG CAP PO SCH ×2 (12:26→22:15)
--- NOTE | 2022-06-25 13:29 | Gastroenterology Consultation ---
History of Present Illness - Reason for Consult Consult date: 06/25/22 abd pain Requesting physician: OLIVER ARRIAGA - History of Present Illness 47-year-old female PMH below, chronic abd pain, direct admit for severe abdominal pain but ct neg for SBO or other path. The pain is described as sharp, diffuse, radiating to the back and chest. The pain has been ongoing for months but really severe over 1 week and progressively worsening. The patient states she has been having some nausea and vomiting. She reports recently passed a long thin foreign body which she kept. She showed to me. It appears to be a long thin piece of plastic such as a wrapper approximately 5 mm in width and many inches in length She reports had an EGD and colonoscopy about 7 years ago prior to any symptoms history of peptic ulcer disease Reports seeing blood in the stool intermittently Past History Past Medical History: GERD, migraines, other (Peptic ulcer disease, lupus, CVA, bipolar d/o, chronic pain) Past Surgical History: cholecystectomy, Other (Hemangioma removal) Social history: smoking (3 cigarettes a day). denies: alcohol abuse Family history: no significant family history Obtained/updated/reviewed patient's current medications Past History Past Medical History: GERD, migraines, other (Peptic ulcer disease, lupus, CVA, bipolar d/o, chronic pain) Past Surgical History: cholecystectomy, Other (Hemangioma removal) Social history: smoking (3 cigarettes a day). denies: alcohol abuse Family history: no significant family history Medications and Allergies Allergies Allergy/AdvReac Type Severity Reaction Status Date / Time cefuroxime [From Ceftin] Allergy Unknown Verified 06/17/22 10:14 cephalexin [From Keflex] Allergy Unknown Verified 06/17/22 10:14 metoclopramide [From Reglan] Allergy Unknown Verified 06/17/22 10:14 Penicillins Allergy Shortness Verified 06/17/22 10:14 of Breath Home Medications Medication Instructions Recorded Confirmed Last Taken Type Docusate Sodium [Colace] 100 mg PO BID PRN #20 capsule 08/02/18 08/23/18 Unknown Rx Colchicine 0.6 mg PO DAILY 08/23/18 08/23/18 Unknown History Cyclobenzaprine [Flexeril 10 MG 10 mg PO QHS #20 tablet 08/23/18 Unknown Rx TAB] Hydroxychloroquine [Plaquenil] 200 mg PO QDAY 08/23/18 08/23/18 Unknown History Meloxicam 15 mg PO DAILY #20 tablet 08/23/18 Unknown Rx Omeprazole Magnesium [Prilosec] 10 mg PO DAILY 08/23/18 08/23/18 Unknown History Pantoprazole [Protonix TAB] 20 mg QDAY 08/23/18 08/23/18 Unknown History QUEtiapine [SEROquel] 300 mg PO QHS 08/23/18 08/23/18 Unknown History SUMAtriptan SUCCINATE [Imitrex] 100 mg PO PRN PRN 08/23/18 08/23/18 Unknown History Sertraline [Zoloft] 150 mg PO QDAY 08/23/18 08/23/18 Unknown History Sulfamethoxazole/Trimethoprim 1 each PO BID #10 tablet 08/23/18 Unknown Rx [Bactrim DS TAB] busPIRone [Buspar] 15 mg PO TID 08/23/18 08/23/18 Unknown History hydroCHLOROthiazide [HCTZ] 12.5 mg PO BID 08/23/18 08/23/18 Unknown History Ketorolac [Toradol] 10 mg PO Q6H PRN #20 tablet 09/05/18 Unknown Rx Ibuprofen [Motrin 600 MG tab] 600 mg PO Q8H PRN #30 tablet 04/21/20 Unknown Rx traMADoL [Ultram 50 MG tab] 50 mg PO Q6HR PRN #12 tablet 04/21/20 Unknown Rx DOXYCYCLINE Hyclate [Vibramycin 100 mg PO Q12HR #28 capsule 09/02/20 Unknown Rx CAP] Ketorolac [Toradol] 10 mg PO Q8H PRN #20 tablet 09/02/20 Unknown Rx Ondansetron [Zofran Odt] 4 mg PO Q6HR PRN #15 tab.rapdis 09/02/20 Unknown Rx metroNIDAZOLE [Flagyl] 500 mg PO Q12HR #14 tab 09/02/20 Unknown Rx traMADoL [Ultram] 50 mg PO Q6HR PRN #12 tablet 09/02/20 Unknown Rx Potassium Chloride [Klor-Con M20] 20 meq PO Q12H #20 tab 03/26/22 Unknown Rx levoFLOXacin [Levaquin TAB] 500 mg PO QDAY #10 tablet 03/26/22 Unknown Rx Fluconazole [Diflucan TAB] 100 mg PO QDAY #1 tablet 04/01/22 Unknown Rx Sulfamethoxazole/Trimethoprim 1 each PO BID #10 tablet 04/01/22 Unknown Rx [Bactrim DS TAB] metroNIDAZOLE [Flagyl] 500 mg PO Q12HR #20 tab 04/01/22 Unknown Rx Ciprofloxacin HCl [Ciprofloxacin 750 mg PO DAILY 7 Days #7 tab 04/05/22 Unknown Rx TAB] Fluconazole [Diflucan TAB] 200 mg PO QDAY 2 Days #1 tablet 04/05/22 Unknown Rx Hyoscyamine Subl [Levsin Sl 0.125 0.125 mg SL Q6HR PRN 5 Days #20 tab 04/05/22 Unknown Rx TAB] Fluconazole [Diflucan TAB] 100 mg PO QDAY #3 tablet 06/17/22 Unknown Rx Phenazopyridine [Pyridium] 100 mg PO TID PRN #20 tab 06/17/22 Unknown Rx Active Meds: Active Medications Acetaminophen (Acetaminophen 325 Mg Tab) 650 mg PO Q4H PRN PRN Reason: Pain MILD(1-3)/Fever >100.5/GOULD Last Admin: 06/25/22 07:49 Dose: 650 mg Dicyclomine HCl (Dicyclomine 20 Mg Tab) 20 mg PO QID [facility] Last Admin: 06/25/22 08:59 Dose: 20 mg Docusate Sodium (Docusate Sodium 100 Mg Cap) 100 mg PO BID [facility] Last Admin: 06/25/22 12:26 Dose: 100 mg Famotidine (Famotidine 20 Mg/2 Ml Inj) 20 mg IV BID [facility] Last Admin: 06/25/22 08:59 Dose: 20 mg Hydromorphone HCl (Hydromorphone 0.5 Mg/0.5 Ml Inj) 1 mg IV Q3H PRN PRN Reason: Pain , Severe (7-10) Last Admin: 06/24/22 22:27 Dose: 1 mg Dextrose/Sodium Chloride (D5ns) 1,000 mls @ 100 mls/hr IV DIRECT [facility] Last Admin: 06/24/22 18:02 Dose: 100 mls/hr Morphine Sulfate (Morphine 2 Mg/1 Ml Inj) 2 mg IV Q4H PRN PRN Reason: Pain, Moderate (4-6) Last Admin: 06/24/22 15:26 Dose: 2 mg Ondansetron HCl (Ondansetron 4 Mg/2 Ml Inj) 4 mg IV Q8H PRN PRN Reason: Nausea And Vomiting Last Admin: 06/25/22 07:49 Dose: 4 mg Polyethylene Glycol (Polyethylene Glycol 3350 17 Gm Powder) 17 gm PO ONCE@1100 ISMAEL Stop: 06/25/22 14:00 Last Admin: 06/25/22 12:27 Dose: 17 gm Sodium Chloride (Sodium Chloride 0.9% 10 Ml Flush Syringe) 10 ml IV BID [facility] Last Admin: 06/25/22 09:00 Dose: 10 ml Sodium Chloride (Sodium Chloride 0.9% 10 Ml Flush Syringe) 10 ml IV PRN PRN PRN Reason: LINE FLUSH Sumatriptan Succinate (Sumatriptan Succinate 6 Mg/0.5 Ml Inj) 6 mg SUB-Q ONCE NR Stop: 06/25/22 17:00 Last Admin: 06/25/22 12:26 Dose: 6 mg Sumatriptan Succinate (Sumatriptan Succinate 25 Mg Tab) 25 mg PO Q2H PRN PRN Reason: Migraine Headache Stop: 06/25/22 23:00 Review of Systems - Review of Systems All systems: negative (10 Systems reviewed and negative except as mentioned above in the history of present illness) Exam - Constitutional Vital Signs: Temp Pulse Resp BP Pulse Ox 97.8 F 73 18 102/67 96 06/25/22 05:00 06/25/22 05:00 06/25/22 11:17 06/25/22 05:00 06/25/22 11:17 General appearance: no acute distress - EENT Eyes: EOM intact - Neck Neck: supple - Respiratory Respiratory effort: normal - Cardiovascular Rhythm: regular - Gastrointestinal General gastrointestinal: Present: soft, tender, normal bowel sounds - Integumentary Integumentary: Present: dry - Musculoskeletal Musculoskeletal: normal - Neurologic Neurological: alert and oriented x3 - Psychiatric Psychiatric: appropriate mood/affect - Labs CBC & Chem 7: 06/24/22 17:57 06/24/22 17:57 Lab Results: Laboratory Results - last 24 hr 06/24/22 06/24/22 17:57 17:57 WBC 4.3 L RBC 3.48 L Hgb 11.0 Hct 33.5 MCV 96 MCH 32 MCHC 33 RDW 13.3 Plt Count 176 Lymph % (Auto) 53.7 H Noble % (Auto) 7.8 H Eos % (Auto) 2.6 Baso % (Auto) 0.6 Lymph # (Auto) 2.3 Noble # (Auto) 0.3 Eos # (Auto) 0.1 Baso # (Auto) 0.0 Seg Neutrophils % 35.3 L Seg Neutrophils # 1.5 L Sodium 142 Potassium 3.8 Chloride 107.0 Carbon Dioxide 26 Anion Gap 13 BUN 12 Creatinine 0.8 Estimated GFR > 60 BUN/Creatinine Ratio 15 Glucose 104 H Calcium 8.9 Total Bilirubin 0.20 AST 22 ALT 11 Alkaline Phosphatase 57 Total Protein 5.9 L Albumin 3.9 Albumin/Globulin Ratio 2.0 Assessment and Plan Essentially normal blood work and imaging is very reassuring, differential diagnosis includes functional abdominal pain, adhesion related disease, infecti ous etiology, peptic ulcer disease, Crohn's disease, etc We will add on dicyclomine to help with symptoms. Check stool studies rule out infectious etiologies. If symptoms not improving and stool studies negative may need to consider EGD and colonoscopy after the weekend - Patient Problems (1) Diffuse abdominal pain Current Visit: Yes Status: Acute (2) Change in bowel habits Current Visit: Yes Status: Acute (3) Blood in stool Current Visit: Yes Status: Acute (4) Nausea & vomiting Current Visit: Yes Status: Acute
[2022-06-25] MEDS: MORPHINE 2 MG/1 ML INJ IV PRN (16:55)
[2022-06-25] MEDS: D5W/0.9% NACL 1,000 ML IV SCH (16:56)
[2022-06-25] MEDS: busPIRone 10 MG TAB PO SCH (22:14)
[2022-06-26] MEDS: D5W/0.9% NACL 1,000 ML IV SCH ×2 (03:00→17:00)
[2022-06-26] MEDS: MORPHINE 2 MG/1 ML INJ IV PRN (03:00)
[2022-06-26] MEDS: ONDANSETRON 4 MG/2 ML INJ IV PRN ×3 (03:05→23:16)
[2022-06-26] MEDS: busPIRone 10 MG TAB PO SCH ×3 (08:00→23:12)
[2022-06-26] MEDS: HYDROmorphone 0.5 MG/0.5 ML INJ IV PRN ×3 (09:14→23:32)
[2022-06-26] MEDS: FAMOTIDINE 20 MG/2 ML INJ IV SCH ×2 (09:18→23:10)
[2022-06-26] MEDS: DOCUSATE SODIUM 100 MG CAP PO SCH ×2 (09:18→23:09)
[2022-06-26] MEDS: DICYCLOMINE 20 MG TAB PO SCH ×4 (09:18→23:09)
--- NOTE | 2022-06-26 09:51 | Progress Note ---
Assessment and Plan Assessment and plan: -- Acute abdominal pain/abdominal distention CT abdomen and pelvis; no acute abnormality noted, no evidence of small bowel obstruction Surgery evaluation and recommendation noted and appreciated GI evaluation noted and appreciated, recommend dicyclomine, stool studies Continue current management -- ED (generalized anxiety disorder) Resume home medication BuSpar --Migraine headache ; Imitrex as needed Supportive care Antiemetics for nausea --Tobacco use; Smoking cessation counseling done, strongly advised to quit Recent sequelae of long-term smoking discussed with the patient Advised nicotine patch - prophylaxis Current Visit: Yes Status: Acute Plan to address problem: On anticoagulation GI prophylaxis - Advance care planning Disease education conducted, care plan discussed, diagnosis discussed and prognosis discussed. Patient acknowledges care plan. +30 minutes. --Smoking cessation counseling 15 to 20 min Follow surgery, GI evaluation recommendations Closely monitor the patient and adjust management as needed Discussed with surgeon Dr. Vargas Plan of care reviewed with patient her nurse 06/26/2022; GI evaluation noted and appreciated, continue dicyclomine, follow stool studies Possible discharge in 1 to 2 days if stable and cleared by GI History Interval history: I have seen and examined the patient at the bedside Patient's chart and medications reviewed Patient still has vague abdominal pain Vital signs noted Hospitalist Physical - Constitutional Vitals: Temp Pulse Resp BP Pulse Ox 98.4 F 66 17 115/66 92 06/26/22 05:54 06/26/22 05:54 06/26/22 05:54 06/26/22 05:54 06/26/22 05:54 General appearance: Present: mild distress, well-nourished - EENT Eyes: Present: PERRL, EOM intact - Neck Neck: Present: supple, normal ROM - Respiratory Respiratory effort: normal Respiratory: bilateral: diminished, negative: rales, rhonchi, wheezing - Cardiovascular Rhythm: regular Heart Sounds: Present: S1 & S2 - Extremities Extremities: no ischemia, No edema - Abdominal General gastrointestinal: soft, non-tender, non-distended, normal bowel sounds - Integumentary Integumentary: Present: clear, warm - Psychiatric Psychiatric: appropriate mood/affect, cooperative - Neurologic Neurologic: CNII-XII intact, moves all extremities Results - Labs CBC & Chem 7: 06/24/22 17:57 06/24/22 17:57 Labs: Laboratory Last Values WBC 4.3 K/mm3 (4.5-11.0) L 06/24/22 17:57 RBC 3.48 M/mm3 (3.65-5.03) L 06/24/22 17:57 Hgb 11.0 gm/dl (10.1-14.3) 06/24/22 17:57 Hct 33.5 % (30.3-42.9) 06/24/22 17:57 MCV 96 fl (79-97) 06/24/22 17:57 MCH 32 pg (28-32) 06/24/22 17:57 MCHC 33 % (30-34) 06/24/22 17:57 RDW 13.3 % (13.2-15.2) 06/24/22 17:57 Plt Count 176 K/mm3 (140-440) 06/24/22 17:57 Lymph % (Auto) 53.7 % (13.4-35.0) H 06/24/22 17:57 King % (Auto) 7.8 % (0.0-7.3) H 06/24/22 17:57 Eos % (Auto) 2.6 % (0.0-4.3) 06/24/22 17:57 Baso % (Auto) 0.6 % (0.0-1.8) 06/24/22 17:57 Lymph # (Auto) 2.3 K/mm3 (1.2-5.4) 06/24/22 17:57 King # (Auto) 0.3 K/mm3 (0.0-0.8) 06/24/22 17:57 Eos # (Auto) 0.1 K/mm3 (0.0-0.4) 06/24/22 17:57 Baso # (Auto) 0.0 K/mm3 (0.0-0.1) 06/24/22 17:57 Seg Neutrophils % 35.3 % (40.0-70.0) L 06/24/22 17:57 Seg Neutrophils # 1.5 K/mm3 (1.8-7.7) L 06/24/22 17:57 Sodium 142 mmol/L (137-145) 06/24/22 17:57 Potassium 3.8 mmol/L (3.6-5.0) 06/24/22 17:57 Chloride 107.0 mmol/L (98-107) 06/24/22 17:57 Carbon Dioxide 26 mmol/L (22-30) 06/24/22 17:57 Anion Gap 13 mmol/L 06/24/22 17:57 BUN 12 mg/dL (7-17) 06/24/22 17:57 Creatinine 0.8 mg/dL (0.6-1.2) 06/24/22 17:57 Estimated GFR > 60 ml/min 06/24/22 17:57 BUN/Creatinine Ratio 15 % 06/24/22 17:57 Glucose 104 mg/dL (65-100) H 06/24/22 17:57 Calcium 8.9 mg/dL (8.4-10.2) 06/24/22 17:57 Total Bilirubin 0.20 mg/dL (0.1-1.2) 06/24/22 17:57 AST 22 units/L (5-40) 06/24/22 17:57 ALT 11 units/L (7-56) 06/24/22 17:57 Alkaline Phosphatase 57 units/L (35-129) 06/24/22 17:57 Total Protein 5.9 g/dL (6.3-8.2) L 06/24/22 17:57 Albumin 3.9 g/dL (3.9-5) 06/24/22 17:57 Albumin/Globulin Ratio 2.0 % 06/24/22 17:57 Ngo/IV: Voiding Method Toilet Active Medications - Current Medications Current Medications: Generic Name Dose Route Start Last Admin Trade Name Freq PRN Reason Stop Dose Admin Acetaminophen 650 mg 06/24/22 15:34 06/25/22 07:49 Acetaminophen 325 Mg Tab PO 650 mg Q4H PRN Administration Pain MILD(1-3)/Fever >100.5/GOULD Buspirone HCl 15 mg 06/25/22 20:00 06/26/22 08:00 Buspirone 10 Mg Tab PO 15 mg TID ISMAEL Administration Dicyclomine HCl 20 mg 06/25/22 10:00 06/26/22 09:18 Dicyclomine 20 Mg Tab PO 20 mg QID ISMAEL Administration Docusate Sodium 100 mg 06/25/22 11:00 06/26/22 09:18 Docusate Sodium 100 Mg Cap PO 100 mg BID ISMAEL Administration Famotidine 20 mg 08/25/22 16:00 06/26/22 09:18 Famotidine 20 Mg/2 Ml Inj IV 20 mg BID ISMAEL Administration Hydromorphone HCl 1 mg 06/24/22 15:34 06/26/22 09:14 Hydromorphone 0.5 Mg/0.5 Ml Inj IV 1 mg Q3H PRN Administration Pain , Severe (7-10) Dextrose/Sodium Chloride 1,000 mls @ 100 mls/hr 06/24/22 16:00 06/26/22 03:00 D5ns IV 100 mls/hr DIRECT ISMAEL Administration Morphine Sulfate 2 mg 06/24/22 13:26 06/26/22 03:00 Morphine 2 Mg/1 Ml Inj IV 2 mg Q4H PRN Administration Pain, Moderate (4-6) Ondansetron HCl 4 mg 06/24/22 13:26 06/26/22 03:05 Ondansetron 4 Mg/2 Ml Inj IV 4 mg Q8H PRN Administration Nausea And Vomiting Sodium Chloride 10 ml 06/24/22 22:00 06/26/22 09:18 Sodium Chloride 0.9% 10 Ml Flush Syringe IV 10 ml BID ISMAEL Administration Sodium Chloride 10 ml 06/24/22 15:34 Sodium Chloride 0.9% 10 Ml Flush Syringe IV PRN PRN LINE FLUSH
--- NOTE | 2022-06-26 10:39 | Gastroenterology Progress Note ---
Assessment and Plan abdominal pain - unclear etiology, ct without acute findings and labs unremarkable. could be functional abd pain, post-surgical adhesions/scarring, etc. recommend trial of clears and supportive care. once tolerating po intake, should be able to be discharged from gi stand point. GERD - reports chest burning sx's, will start PPI. Subjective Date of service: 06/26/22 Principal diagnosis: abd pain Interval history: patient c/o migraine this morning. still with abd pain, lower abdomen mostly, also with chest burning. has not tried po intake. Objective - Constitutional Vitals: Temp Pulse Resp BP Pulse Ox 98.4 F 66 17 115/66 92 06/26/22 05:54 06/26/22 05:54 06/26/22 05:54 06/26/22 05:54 06/26/22 05:54 General appearance: no acute distress - Cardiovascular Rhythm: regular - Gastrointestinal General gastrointestinal: Present: soft, tender (mild lower abd ttp), non- distended - Neurologic Neurological: alert and oriented x3 - Labs CBC & Chem 7: 06/24/22 17:57 06/24/22 17:57
[2022-06-26] MEDS: PANTOPRAZOLE 40 MG TAB PO SCH (11:00)
[2022-06-27] MEDS: PANTOPRAZOLE 40 MG TAB PO SCH (07:30)
--- NOTE | 2022-06-27 07:45 | Discharge Summary ---
Providers - Providers Date of Admission: 06/24/22 13:19 Date of discharge: 06/27/22 Attending physician: OLIVER ARRIAGA 06/24/22 15:34 Consult to Physician [CONS] Routine Comment: Consulting Provider: TAZ WILSON Physician Instructions: Reason For Exam: Acute abdominal pain/SBO 06/25/22 10:46 Consult to Physician [CONS] Routine Comment: Requested by surgeon Dr. Wilson Consulting Provider: LETTY MOONEY Physician Instructions: Reason For Exam: Acute abdominal pain/abdominal distention/CT negat Primary care physician: DAYA VERDUZCO MD Hospitalization Hospital course: 47-year-old female patient with significant past medical history of migraine headache, bipolar disorder and lupus chronic pain syndrome was admitted through emergency room with abdominal distention for 1 week along with abdominal pain CT abdomen did not show any acute abnormalities no evidence of small bowel obstruction patient was evaluated by surgeon, did not find any abnormalities from surgical standpoint Recommended GI consultation GI evaluated the patient and recommended dicyclomine and Protonix -- Acute abdominal pain/abdominal distention CT abdomen and pelvis; no acute abnormality noted, no evidence of small bowel obstruction Surgery evaluation and recommendation noted and appreciated GI evaluation noted and appreciated, recommend dicyclomine, stool studies Continue current management -- ED (generalized anxiety disorder) Resume home medication BuSpar --Migraine headache ; Imitrex as needed Supportive care Antiemetics for nausea --Tobacco use; Smoking cessation counseling done, strongly advised to quit Recent sequelae of long-term smoking discussed with the patient Advised nicotine patch - prophylaxis Current Visit: Yes Status: Acute Plan to address problem: On anticoagulation GI prophylaxis - Advance care planning Disease education conducted, care plan discussed, diagnosis discussed and prognosis discussed. Patient acknowledges care plan. +30 minutes. --Smoking cessation counseling 15 to 20 min Disposition: HOME / SELF CARE / HOMELESS Final Discharge Diagnosis (Prints w/discharge instructions): Acute abdominal pain and abdominal distention improved. Generalized anxiety disorder. Migraine headaches. Ongoing tobacco use/counseling done advised smoking cessation. Gastroesophageal reflux disease Time spent for discharge: 35 min Core Measure Documentation - Palliative Care Palliative Care/ Comfort Measures: Not Applicable - Core Measures Any of the following diagnoses?: none Exam - Constitutional Vitals: Temp Pulse Resp BP Pulse Ox 98.6 F 67 16 143/85 99 06/26/22 21:21 06/26/22 21:21 06/26/22 21:21 06/26/22 21:21 06/26/22 22:00 General appearance: Present: no acute distress, well-nourished - EENT Eyes: Present: PERRL, EOM intact - Neck Neck: Present: supple, normal ROM - Respiratory Respiratory effort: normal Respiratory: bilateral: diminished, negative: rales, rhonchi, wheezing - Cardiovascular Rhythm: regular Heart Sounds: Present: S1 & S2 - Extremities Extremities: no ischemia, No edema - Abdominal General gastrointestinal: Present: soft, non-tender, non-distended, normal bowel sounds - Integumentary Integumentary: Present: clear, warm - Musculoskeletal Musculoskeletal: strength equal bilaterally - Psychiatric Psychiatric: appropriate mood/affect, cooperative - Neurologic Neurologic: moves all extremities Plan Activity: advance as tolerated Diet: other (Soft diet advance as tolerated) Additional Instructions: Advised to see private geophysical laboratory supervisor in 1 to 2 weeks. If you have worsening symptoms contact MD or go to the nearest emergency room as needed. Smoking cessation advised, nicotine patch as needed. Advised to see your private psychiatrist for your bipolar and anxiety needs. You have numerous home medications many of them are duplicates. Please check with primary care physician to review the list and continue the medications that are advised Follow up with: DAYA VERDUZCO MD [Primary Care Provider] - 7 Days NORBERT NICOLE MD [Staff Physician] - 14 Days Prescriptions: Dicyclomine [Bentyl] 20 mg PO QID #60 tablet Docusate Sodium [Colace CAP] 100 mg PO BID #20 capsule Pantoprazole [Protonix TAB] 40 mg PO QDAC #30 tablet
[2022-06-27] MEDS: FAMOTIDINE 20 MG/2 ML INJ IV SCH (09:00)
[2022-06-27] MEDS: busPIRone 10 MG TAB PO SCH ×2 (09:01→16:23)
[2022-06-27] MEDS: DICYCLOMINE 20 MG TAB PO SCH ×2 (09:01→14:00)
[2022-06-27] MEDS: DOCUSATE SODIUM 100 MG CAP PO SCH (09:01)
--- NOTE | 2022-06-27 10:04 | Gastroenterology Progress Note ---
Assessment and Plan 1. abdominal pain - stable, appears unchanged. non-toxic appearing with no significant lab abnormalities or acute process on ct scan. ? functional abd pain vs post-surgical adhesions/scarring, cont dicyclomine and conservative management from gi stand point 2. GERD - cont ppi daily noted plans for discharge today. will sign off, please call as needed. Subjective Date of service: 06/27/22 Principal diagnosis: abd pain Interval history: sx's about the same, sleeping at time of exam. still with abd pain. no n/v Objective - Constitutional Vitals: Temp Pulse Resp BP Pulse Ox 98.6 F 67 16 143/85 99 06/26/22 21:21 06/26/22 21:21 06/26/22 21:21 06/26/22 21:21 06/26/22 22:00 General appearance: no acute distress - Respiratory Respiratory effort: normal Respiratory: bilateral: CTA - Gastrointestinal General gastrointestinal: Present: soft, tender, non-distended - Neurologic Neurological: alert and oriented x3 - Labs CBC & Chem 7: 06/24/22 17:57 06/24/22 17:57
[2022-06-27] MEDS: HYDROmorphone 0.5 MG/0.5 ML INJ IV PRN (10:09)
[2022-06-27] MEDS: ONDANSETRON 4 MG/2 ML INJ IV PRN (10:09)
[2022-06-27 18:49] VITALS: BP 107/68
== END 2022-06-27 19:00 | disposition home or self-care (01) | DRG 392 ==
LOC: 3A 13:19
PROVIDERS: ADMIT Internal Medicine; ATTEND Internal Medicine
DX: K21.9 Gastro-esophageal reflux disease without esophagitis (principal); R14.0 Abdominal distension (gaseous); G43.909 Migraine, unspecified, not intractable, without status migrainosus; F31.9 Bipolar disorder, unspecified; M19.90 Unspecified osteoarthritis, unspecified site; M32.9 Systemic lupus erythematosus, unspecified; G89.29 Other chronic pain; F17.210 Nicotine dependence, cigarettes, uncomplicated; F41.1 Generalized anxiety disorder; Z71.6 Tobacco abuse counseling; F17.200 Nicotine dependence, unspecified, uncomplicated; Z88.0 Allergy status to penicillin; Z90.49 Acquired absence of other specified parts of digestive tract; Z88.8 Allergy status to other drugs, medicaments and biological substances
CPT/HCPCS: 36415; 74176; 80053; 85025; 99406; G0378; J3490; J1170; J2270; J2405; J3030; J7042